=== PATIENT | female | born 1965 | race Caucasian/White ===

== ENCOUNTER 2023-06-30 13:02 | Outpatient (OUT) | payer BC, MEDICARE, SELFPAY ==
[2023-06-30 13:35] LABS: Basophils Absolute Auto 0.1 10^3/uL (0.0-0.1); Basophils Percent Auto 1.4 % (0.2-2.0); Eosinophils Absolute Auto 0.1 10^3/uL (0.0-0.7); Eosinophils Percent Auto 1.7 % (0.9-7.0); Hemoglobin 9.8 g/dL (12.0-16.0); Immature Granulocytes Abs Auto 0.03 10^3/uL (0.00-0.03); Immature Granulocytes Pct Auto 0.6 % (0.0-0.5); Lymphocytes Absolute Auto 1.4 10^3/uL (1.2-3.8); Lymphocytes Percent Auto 28.5 % (20.5-60.0); Mean Corpuscular HGB Conc 29.7 g/dL (29.9-35.2); Mean Corpuscular Hemoglobin 21.8 pg (26.7-34.0); Mean Corpuscular Volume 73.5 fL (81.0-99.0); Mean Platelet Volume 10.2 fL (9.5-13.5); Monocytes Absolute Auto 0.5 10^3/uL (0.3-0.8); Monocytes Percent Auto 9.3 % (1.7-12.0); Neutrophils Absolute Auto 2.8 10^3/uL (1.4-6.5); Neutrophils Percent Auto 58.5 % (43.0-75.0); Platelet Count 223 10^3/uL (150-450); Red Blood Count 4.49 10^6/uL (4.20-5.40); White Blood Count 4.8 10^3/uL (4.0-11.0)
[2023-06-30 13:49] LABS: Estimated Average Glucose 154 mg/dL
[2023-06-30 13:58] LABS: Alanine Aminotransferase 50 U/L (14-59); Albumin Globulin Ratio 1.3; Albumin Level 4.4 g/dL (3.4-5.0); Alkaline Phosphatase 112 U/L (46-116); Anion Gap 13.9; Aspartate Amino Transferase 52 U/L (15-37); Bilirubin Direct 0.1 mg/dL (0.0-0.2); Bilirubin Total 0.3 mg/dL (0.2-1.0); Calcium 9.4 mg/dL (8.5-10.1); Carbon Dioxide 28.1 mmol/L (21.0-32.0); Chloride 100 mmol/L (98-107); Chol HDL Ratio 2.6; Cholesterol 137 mg/dL (<=200); Estimated GFR (African America >60 (>=60); Estimated GFR (Non-African Ame >60 (>=60); Globulin 3.5 g/dL; Glucose 191 mg/dL (74-106); HDL Cholesterol 52 mg/dL (40-60); LDL Cholesterol Calculated 62.6 mg/dL; Sodium 138 mmol/L (136-145); Thyroid Stimulating Hormone 0.916 uIU/mL (0.358-3.740); Total Protein 7.9 g/dL (6.4-8.2); Triglycerides 112 mg/dL (<=150); VLDL CHOLESTEROL 22.4 mg/dL
[2023-06-30 14:20] LABS: Microalbumin Urine Random <1.3 mg/dL (<=30.0)
== END 2023-06-30 13:03 | disposition home or self-care (01) ==
LOC: LAB 13:10
PROVIDERS: PCP Family Medicine; Visit Provider Family Medicine
DX: E11.65 Type 2 diabetes mellitus with hyperglycemia (principal); I10 Essential (primary) hypertension; Z79.899 Other long term (current) drug therapy; E66.01 Morbid (severe) obesity due to excess calories; Z79.4 Long term (current) use of insulin
CPT/HCPCS: 36415; 80048; 80061; 80076; 82043; 83036; 84443; 85025

== ENCOUNTER 2024-04-05 11:28 | Outpatient (OUT) | payer BC, MEDICARE, SELFPAY ==
--- NOTE | 2024-04-05 11:30 | MM_ITS ---
Patient Name: CHASTITY HERNANDES MR#: [id number] : 1965 Exam Date: 04/05/2024 Ordering Doctor: DR Luis Hernandez . RADIOLOGY REPORT PROCEDURE: MM TOMOSYNTHESIS SCREENING BI COMPARISON: MAMMO POST BIOPSY RIGHT, 06/06/2017. MAMMO RT DX, 05/11/2017. MAMMO ADRIANA SCREEN, 03/25/2017. INDICATIONS: screening Calculator Name NCI Breast Cancer Risk Assessment Tool 5 Year Breast Cancer Risk 1.50% Lifetime Breast Cancer Risk 8.30% Personal Breast Cancer No Personal Ovarian Cancer No Treatments None Family Cancers None LOCATION: [facility] BREAST COMPOSITION: The breasts are almost entirely fatty. FINDINGS: DIAGNOSTIC CATEGORY 2--BENIGN FINDING: RIGHT BREAST: No significant suspicious finding. Scattered benign-appearing calcifications are present. No significant change has occurred. LEFT BREAST: No significant suspicious finding. Scattered benign-appearing calcifications are present. RECOMMENDATIONS: ROUTINE MAMMOGRAM AND CLINICAL EVALUATION IN 12 MONTHS. PLEASE NOTE: A NORMAL MAMMOGRAM DOES NOT EXCLUDE THE POSSIBILITY OF BREAST CANCER. A CLINICALLY SUSPICIOUS PALPABLE LUMP SHOULD BE BIOPSIED. Dictated by: Chetan Morales M.D. on 04/06/2024 at 15:10 Approved by: Chetan Morales M.D. on 04/06/2024 at 15:14
[2024-04-05 13:05] LABS: Estimated Average Glucose 157 mg/dL; Glycohemoglobin A1C 7.1 % (4.5-6.2)
== END 2024-04-05 11:29 | disposition home or self-care (01) ==
LOC: MAMMO 11:28
PROVIDERS: PCP Family Medicine; Visit Provider Family Medicine
DX: M25.511 Pain in right shoulder (principal); Z12.31 Encounter for screening mammogram for malignant neoplasm of breast
CPT/HCPCS: 36415; 73030; 77063; 77067; 83036

== ENCOUNTER 2024-04-05 11:56 | Outpatient (OUT) | payer BC, MEDICARE, SELFPAY ==
--- NOTE | 2024-04-05 12:04 | XR_ITS ---
The [address] [address] Patient Name: CHASTITY HERNANDES MRN: [id number] date: 1965 Sex: F Assigned Patient Location: [facility] Current Patient Location: [facility] Accession/Order Number: [id number] Exam Date: 04/05/2024 12:10 Report Date: 04/08/2024 04:54 At the request of: SHAIKH RAMIRO Procedure: XR shoulder RT min 2V PROCEDURE: XR shoulder RT min 2V HISTORY: Acute Pain Right Shoulder M25.511 COMPARISON: None. FINDINGS: BONES:Degenerative osteophyte projecting caudally from distal end of clavicle. Unremarkable humeral head and glenohumeral joint. SOFT TISSUES:No visible soft tissue swelling. EFFUSION:None visible. OTHER: Negative. XR/XR shoulder RT min 2V IMPRESSION: 1. Acromioclavicular joint degenerative osteophyte which would predispose to rotator cuff injury. Electronically authenticated by: ELAN VILLARREAL Date: 04/08/2024 04:54
== END 2024-04-05 11:57 | disposition home or self-care (01) ==
PROVIDERS: PCP Family Medicine; Visit Provider Internal Medicine
DX: M25.511 Pain in right shoulder (principal)
CPT/HCPCS: 73030

== ENCOUNTER 2024-04-26 09:38 | Outpatient (OUT) | payer BC, MEDICARE, SELFPAY ==
--- NOTE | 2024-04-26 09:42 | MR_ITS ---
[place] [id number] Patient Name: CHASTITY HERNANDES MRN: [id number] date: 1965 Sex: F Assigned Patient Location: MRI Current Patient Location: MRI Accession/Order Number: [id number] Exam Date: 04/26/2024 09:50 Report Date: 04/26/2024 14:42 At the request of: SHAIKH RAMIRO Procedure: MR shoulder RT wo con EXAMINATION: MR shoulder RT wo con HISTORY: Acute Pain Of Right Shoulder M25.511 COMPARISON: No relevant comparison available. TECHNIQUE: A variety of imaging planes and parameters were utilized for visualization of suspected pathology. Imaging was performed without contrast. FINDINGS: ROTATOR CUFF REGION CUFF TENDONS: Moderately increased signal intensity in the supraspinatus and subscapularis tendons indicates tendon degeneration and/or tendinitis. No herman tear is seen. CUFF MUSCLES: Normal appearing muscles. DELTOID: Normal. No significant atrophy or tear. LONG BICEPS TENDON: Normal. No abnormal signal, attrition, or tear. LABRUM/BICEPS ANCHOR SUPERIOR: Normal. No visible labral tear or biceps anchor pathology. ANTERIOR/INFERIOR: Normal anterior labral tear POSTERIOR: Normal. No posterior labrum abnormality. CAPSULE Normal. No visible capsular laxity or thickening. AC JOINT REGION AC JOINT: Moderate osteoarthropathy with mild-moderate narrowing of the underlying coracoacromial arch. AC LIGAMENTS: Normal acromioclavicular ligament. CC LIGAMENTS: Normal coracoclavicular ligaments. ACROMION: Normal horizontal (Type I) configuration. SUBACROMIAL BURSA: Normal. No significant effusion. HYALINE CARTILAGE: Mild diffuse thinning OTHER BONES: Moderate subcortical bone marrow signal changes in the superior aspect of the humerus may be caused by subacromial impingement. OTHER OBSERVATIONS: Negative. No other significant findings or glenohumeral effusion. 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
--- OUTSIDE RECORDS SUMMARY | 2024-04-26 09:58 | XMS_ITS | CCD ---
Author Organization [facility] Care Team Providers Care Supervisor Grips Name Role Phone ELIZABETH JOHNSON Unavailable Unavailable SARY CARRENO Unavailable Unavailable ELTAHAWY, JOHNNY Cameron Attending Unavailable ELTAHAWY, JOHNNY Cameron Admitting Unavailable NADLUIS MACKENZIE Referring Unavailable ALISA, LUIS Primary Care Unavailable PARVINEREJeff, DR LUIS Cameron Attending Unavailable NADERER, DR LUIS Cameron Consulting Unavailable NADERER, DR LUIS Cameron Primary Care Unavailable NADERER, DR LUIS Cameron Admitting Unavailable NADERER, DR LUIS Cameron Attending Unavailable NADERER, DR LUIS Cameron Consulting Unavailable NADEREJeff, DR LUIS Cameron Primary Care Unavailable NADERER, DR LUIS Cameron Admitting Unavailable NADERER, DR LUIS Cameron Consulting Unavailable NADERER, DR LUIS Cameron Primary Care Unavailable NADERER, DR LUIS Cameron Admitting Unavailable NADERER, DR LUIS Cameron Attending Unavailable Luis Cuellar MD Primary Care Provider LUIS CUELLAR Primary Care Unavailable ALISA, LUIS Attending Unavailable SHAIKH RUBIO Attending Unavailable Allergies Allergy Classification Reported Allergen(s) Allergy Type Date of Onset Reaction(s) Facility (2 sources) gabapentin; Translations: [facility]IN[facility]; Translations: [[facility]PROXEN] [facility] Penicillin V Potassium; Translations: [PENICILLIN V POTASSIUM] Propensity to adverse reactions to drug (disorder) 5 [facility] Repository (1 source) terbinafine; Translations: [TERBINAFINE HCL] Drug Allergy 5 [facility] Repository (1 source) DULoxetine; Translations: [CYMBALTA] Drug Allergy 6 [facility] Repository (2 sources) gabapentin Drug Allergy 4 [facility] Repository (1 source) lamoTRIgine Drug Allergy 4 [facility] Repository (2 sources) Penicillins; Translations: [PENICILLINS] Drug allergy (disorder) 4 [facility] Repository (1 source) cyclobenzaprine Drug Allergy 7 [facility] Repository (1 source) Penicillin Drug Allergy 7 [facility] Repository (1 source) NSAIDs; Translations: [NSAIDS (NON-STEROIDAL ANTI-INFLAMMATORY DRUG)] Propensity to adverse reactions to drug (disorder) 7 [facility] Repository Medications Current Medications Medication Drug Class(es) Dates Sig (Normalized) Sig (Original) furosemide 40 mg oral tablet (1 source) Loop Diuretic Start: 12-06-2023 take 1 tablet by mouth once daily as needed furosemide (Lasix) 40 MG tablet Indications: Edema of both legs TAKE 1 TABLET BY MOUTH EVERY DAY NEEDED 90 tablet 3 12/06/2023 Active glipiZIDE 10 mg oral tablet (1 source) Sulfonylurea Start: 11-17-2023 glipiZIDE (Glucotrol) 10 MG tablet Indications: Type 2 diabetes mellitus without complications (CMS/HCC) TAKE 2 TABLETS EVERY MORNING AND 1 TABLET EVERY EVENING 270 tablet 3 11/17/2023 Active mirtazapine 45 mg oral tablet (1 source) Start: 11-18-2023 take 1 tablet by mouth once daily at bedtime mirtazapine (Remeron) 45 MG tablet Indications: Episode of recurrent major depressive disorder, unspecified depression episode severity (CMS/HCC) TAKE 1 TABLET BY MOUTH EVERYDAY AT BEDTIME 90 tablet 3 11/18/2023 Active omeprazole 40 mg delayed release oral capsule (1 source) Proton Pump Inhibitor Start: 01-05-2024 take 1 capsule by mouth twice daily omeprazole (PriLOSEC) [address] capsule Indications: Gastro-esophageal reflux disease without esophagitis , Esophageal reflux TAKE 1 CAPSULE BY MOUTH TWICE A DAY 180 capsule 3 01/05/2024 Active pregabalin 300 mg oral capsule (2 sources) Start: 01-05-2024 End: 02-04-2024 take 1 capsule by mouth in the morning pregabalin (Lyrica) 300 MG capsule Indications: Type 2 diabetes mellitus with polyneuropathy (CMS/HCC) Take 1 capsule (300 mg) by mouth in the morning and 1 capsule (300 mg) before bedtime. 60 capsule 2 01/05/2024 02/04/2024 Active zolpidem tartrate 10 mg oral tablet (1 source) gamma-Aminobutyric Acid-ergic Agonist Start: 12-19-2023 take 1 tablet by mouth once daily at bedtime zolpidem (Ambien) 10 MG tablet Indications: Insomnia, unspecified , Persistent insomnia TAKE 1 TABLET BY MOUTH EVERYDAY AT BEDTIME 90 tablet 2 12/19/2023 Active Problems Active Problems Problem Classification Problem Date Documented Date Episodic/Chronic Diabetes mellitus with complications (5 sources) Type 2 diabetes mellitus with hyperglycemia; Translations: [Type 2 diabetes mellitus] Onset: 12-28-2022 Chronic Esophageal disorders (2 sources) Gastroesophageal reflux disease without esophagitis; Translations: [Gastro-esophageal reflux disease without esophagitis] 01-05-2024 Chronic Essential hypertension (1 source) Essential (primary) hypertension; Translations: [ESSENTIAL PRIMARY HYPERTENSION] Onset: 06-10-2022 Chronic Other aftercare (1 source) care home (current) use of insulin; Translations: [JAIL CURRENT USE OF INSULIN] Onset: 12-29-2022 Episodic Other nutritional; endocrine; and metabolic disorders (1 source) Morbid (severe) obesity due to excess calories; Translations: [MORBID SEVERE OBES D/T EXCESS RJ] Onset: 06-10-2022 Chronic Superficial injury; contusion (1 source) Injury of conjunctiva and corneal abrasion without foreign body, left eye, initial encounter; Translations: [Injury of conjunctiva and corneal abrasion without foreign body, left eye, initial encounter] Onset: 01-06-2024 Episodic Unclassified (1 source) Foreign Body in Eye Onset: 01-06-2024 Unclassified (1 source) sawdust in left eye Onset: 01-06-2024 Past or Other Problems Problem Classification Problem Date Documented Da te Episodic/Chronic Other aftercare (1 source) Other intermediate project manager (current) drug therapy; Translations: [OTH MULTILITH OPERATOR CURRENT DRUG THERAPY] Onset: 06-10-2022 Episodic Results Test Name Value Interpretation Reference Range Facility GLYCOHEMOGLOBIN A1Con 2022 ADA RECOMMENDATION SEE BELOW Normal [facility] Comment on above: Result Comment: ADA RECOMMENDED LIMIT 4.0 - 6.0 ADA THERAPEUTIC TARGET < 7.0 ACTION SUGGESTED > 7.0 Performed By: #### A 1C #### [facility] [address] [place] [address] Dr. Anali Underwood Glucose [Mass/Vol] 183 mg/dL Normal [facility] Comment on above: Performed By: #### A 1C #### [facility] [address] [place] [address] Dr. Anali Underwood HbA1c (Bld) [Mass fraction] 8.0 % Critically high 4.5-6.2 [facility] Comment on above: Performed By: #### A 1C #### [facility] [address] [place] [address] Dr. Anali Underwood GLYCOHEMOGLOBIN A1Con 2021 ADA RECOMMENDATION SEE BELOW Normal [facility] Comment on above: Result Comment: ADA RECOMMENDED LIMIT 4.0 - 6.0 ADA THERAPEUTIC TARGET < 7.0 ACTION SUGGESTED > 7.0 Performed By: #### A 1C #### [facility] [address] [place] [address] Dr. Anali Underwood Glucose [Mass/Vol] 174 mg/dL Normal [facility] Comment on above: Performed By: #### A 1C #### [facility] [address] [place] [address] Dr. Anali Underwood HbA1c (Bld) [Mass fraction] 7.7 % Critically high 4.5-6.2 [facility] Comment on above: Performed By: #### A 1C #### [facility] [address] [place] [address] Dr. Anali Underwood CBC AUTO DIFFon 06-08-2022 BASO # 0.1 103/ul Normal 0.0-0.1 [facility] Comment on above: Performed By: #### C BC #### [facility] [address] [place] [address] Dr. Anali Underwood Basophils/100 WBC (Bld) 1.0 % Normal 0.2-2.0 [facility] Comment on above: Performed By: #### C BC #### [facility] [address] [place] [address] Dr. Anali Underwood EO # 0.1 103/ul Normal 0.0-0.7 [facility] Comment on above: Performed By: #### C BC #### [facility] [address] [place] [address] Dr. Anali Underwood Eosinophils/100 WBC (Bld) 1.1 % Normal 0.9-7.0 [facility] Comment on above: Performed By: #### C BC #### [facility] [address] [place] [address] Dr. Anali Underwood Erythrocyte distribution width (RBC) [Ratio] 19.8 % Critically high 11.0-15.0 [facility] Comment on above: Performed By: #### C BC #### [facility] [address] [place] [address] Dr. Anali Underwood Hematocrit (Bld) [Volume fraction] 36.4 % Normal 36.0-48.0 [facility] Comment on above: Performed By: #### C BC #### [facility] [address] [place] [address] Dr. Anali Underwood Hemoglobin (Bld) [Mass/Vol] 10.7 g/dL Critically low 12.0-16.0 [facility] Comment on above: Performed By: #### C BC #### [facility] [address] [place] [address] Dr. Anali Underwood IG # 0.02 10e3/ul Normal 0.00-0.03 [facility] Comment on above: Performed By: #### C BC #### [facility] [address] [place] [address] Dr. Anali Underwood IG % 0.3 % Normal 0.0-0.5 [facility] Comment on above: Performed By: #### C BC #### [facility] [address] [place] [address] Dr. Anali Underwood LYMPH # 2.3 103/ul Normal 1.2-3.8 [facility] Comment on above: Performed By: #### C BC #### [facility] [address] [place] [address] Dr. Anali Underwood Lymphocytes/100 WBC (Bld) 31.7 % Normal 20.5-60.0 [facility] Comment on above: Performed By: #### C BC #### [facility] [address] [place] [address] Dr. Anali Underwood MANUAL DIFF REQ NO Normal [facility] Comment on above: Performed By: #### C BC #### [facility] [address] [place] [address] Dr. Anali Underwood MCH (RBC) [Entitic mass] 22.7 pg Critically low 26.7-34.0 [facility] Comment on above: Performed By: #### C BC #### [facility] [address] [place] [address] Dr. Anali Underwood MCHC (RBC) [Mass/Vol] 29.4 g/dL Critically low 29.9-35.2 [facility] Comment on above: Performed By: #### C BC #### [facility] [address] [place] [address] Dr. Anali Underwood MCV (RBC) [Entitic vol] 77.3 fL Critically low 81.0-99.0 [facility] Comment on above: Performed By: #### C BC #### [facility] [address] [place] [address] Dr. Anali Underwood MONO # 0.6 103/ul Normal 0.3-0.8 [facility] Comment on above: Performed By: #### C BC #### [facility] [address] [place] [address] Dr. Anali Underwood Monocytes/100 WBC (Bld) 8.1 % Normal 1.7-12.0 [facility] Comment on above: Performed By: #### C BC #### [facility] [address] [place] [address] Dr. Anali Underwood NEUT # 4.1 103/ul Normal 1.4-6.5 [facility] Comment on above: Performed By: #### C BC #### [facility] [address] [place] [address] Dr. Anali Underwood Neutrophils/100 WBC (Bld) 57.8 % Normal 43.0-75.0 [facility] Comment on above: Performed By: #### C BC #### [facility] [address] [place] [address] Dr. Anali Underwood Platelet mean volume (Bld) [Entitic vol] 11.6 fL Normal 9.5-13.5 [facility] Comment on above: Performed By: #### C BC #### [facility] [address] [place] [address] Dr. Anali Underwood PLT 248 103/ul Normal 150-450 [facility] Comment on above: Performed By: #### C BC #### [facility] [address] [place] [address] Dr. Anali Underwood RBC 4.71 106/ul Normal 4.20-5.40 [facility] Comment on above: Performed By: #### C BC #### [facility] [address] [place] [address] Dr. Anali Underwood WBC 7.2 103/ul Normal 4.0-11.0 [facility] Comment on above: Performed By: #### C BC #### [facility] [address] [place] [address] Dr. Anali Underwood GLYCOHEMOGLOBIN A1Con 2021 ADA RECOMMENDATION SEE BELOW Normal [facility] Comment on above: Result Comment: ADA RECOMMENDED LIMIT 4.0 - 6.0 ADA THERAPEUTIC TARGET < 7.0 ACTION SUGGESTED > 7.0 Performed By: #### A 1C #### [facility] [address] [place] [address] Dr. Anali Underwood Glucose [Mass/Vol] 171 mg/dL Normal [facility] Comment on above: Performed By: #### A 1C #### [facility] [address] [place] [address] Dr. Anali Underwood HbA1c (Bld) [Mass fraction] 7.6 % Critically high 4.5-6.2 [facility] Comment on above: Performed By: #### A 1C #### [facility] [address] [address] [address] Anali Underwood LIPID PROFILEon 06-08-2022 CHOL-HDL RATIO NORM SEE BELOW Normal [facility] Comment on above: Result Comment: 3.3 - 4.4 LOW RISK 4.4 - 7.1 AVERAGE RISK 7.1 - 11.0 MODERATE RISK >11.0 HIGH RISK Performed By: #### L IPID, LIVER, BMP, TSH #### [facility] [address] [address] [address] Anali Underwood Cholesterol [Mass/Vol] 148 mg/dL Normal <=200 [facility] Comment on above: Performed By: #### L IPID, LIVER, BMP, TSH #### [facility] [address] [address] [address] Anali Underwood Cholesterol in HDL [Mass/Vol] 58 mg/dL Normal 40-60 [facility] Comment on above: Performed By: #### L IPID, LIVER, BMP, TSH #### [facility] [address] [address] [address] Anali Underwood Cholesterol in LDL [Mass/Vol] 66.4 mg/dL Normal [facility] Comment on above: Performed By: #### L IPID, LIVER, BMP, TSH #### [facility] [address] [address] [address] Anali Underwood Cholesterol.total/ Cholesterol in HDL [Mass ratio] 2.6 {ratio} Normal [facility] Comment on above: Performed By: #### L IPID, LIVER, BMP, TSH #### [facility] [address] [address] [address] Anali Underwood HDL NORMAL > or = 60 mg/dl - LO W CARDIOVASCULAR RISK <40 mg/dl - HIGH CARDIOVASCULAR RISK Normal [facility] Comment on above: Performed By: #### L IPID, LIVER, BMP, TSH #### [facility] [address] [place] [address] Dr. Anali Underwood LDL CALC NORMAL SEE BELOW Normal [facility] Comment on above: Result Comment: <100 mg/dl OPTIMAL 100 - 129 mg/dl NEAR OR ABOVE OPTIMAL 130 - 159 mg/dl BORDERLINE HIGH 160 - 189 mg/dl HIGH >190 mg/dl VERY HIGH Performed By: #### L IPID, LIVER, BMP, TSH #### [facility] [address] [place] [address] Dr. Anali Underwood Triglyceride [Mass/Vol] 118 mg/dL Normal <=150 [facility] Comment on above: Performed By: #### L IPID, LIVER, BMP, TSH #### [facility] [address] [address] [address] Anali Underwood VLDL CALC 23.6 mg/dL Normal [facility] Comment on above: Performed By: #### L IPID, LIVER, BMP, TSH #### [facility] [address] [place] [address] Dr. Anali Underwood LIVER PROFILEon 06-08-2022 Albumin [Mass/Vol] 4.2 g/dL Normal 3.4-5.0 [facility] Comment on above: Performed By: #### L IPID, LIVER, BMP, TSH #### [facility] [address] [address] [address] Anali Underwood Albumin/Globulin [Mass ratio] 1.0 {ratio} Normal [facility] Comment on above: Performed By: #### L IPID, LIVER, BMP, TSH #### [facility] [address] [place] [address] Dr. Anali Underwood ALP [Catalytic activity/Vol] 93 U/L Normal 46-116 [facility] Comment on above: Performed By: #### L IPID, LIVER, BMP, TSH #### [facility] [address] [place] [address] Dr. Anali Underwood ALT [Catalytic activity/Vol] 59 U/L Normal 14-59 [facility] Comment on above: Performed By: #### L IPID, LIVER, BMP, TSH #### [facility] [address] [place] [address] Dr. Anali Underwood AST [Catalytic activity/Vol] 99 U/L Critically high 15-37 [facility] Comment on above: Performed By: #### L IPID, LIVER, BMP, TSH #### [facility] [address] [place] [address] Dr. Anali Underwood BILI, CONJUGATED 0.0 mg/dL Normal 0.0-0.2 [facility] Comment on above: Performed By: #### L IPID, LIVER, BMP, TSH #### [facility] [address] [place] [address] Dr. Anali Underwood Bilirubin [Mass/Vol] 0.4 mg/dL Normal 0.2-1.0 [facility] Comment on above: Performed By: #### L IPID, LIVER, BMP, TSH #### [facility] [address] [place] [address] Dr. Anali Underwood Globulin (S) [Mass/Vol] 4.2 g/dL Normal [facility] Comment on above: Performed By: #### L IPID, LIVER, BMP, TSH #### [facility] [address] [place] [address] Dr. Anali Underwood Protein [Mass/Vol] 8.4 g/dL Critically high 6.4-8.2 [facility] Comment on above: Performed By: #### L IPID, LIVER, BMP, TSH #### [facility] [address] [place] [address] Dr. Anali Underwood MICROALBUMIN, RAND URon 07- mALB 0.9 mg/L Normal <=30.0 [facility] Comment on above: Performed By: #### M ALBR #### [facility] [address] [place] [address] Dr. Anali Underwood PROF CHEM 8 (BAS METB)on Anion gap [Moles/Vol] 15.2 mmol/L Normal [facility] Comment on above: Performed By: #### L IPID, LIVER, BMP, TSH #### [facility] [address] [place] [address] Dr. Anali Underwood Calcium [Mass/Vol] 9.6 mg/dL Normal 8.5-10.1 [facility] Comment on above: Performed By: #### L IPID, LIVER, BMP, TSH #### [facility] [address] [address] [address] Anali Underwood Chloride [Moles/Vol] 101 mmol/L Normal 98-107 [facility] Comment on above: Performed By: #### L IPID, LIVER, BMP, TSH #### [facility] [address] [address] [address] Anali Underwood CO2 [Moles/Vol] 29.9 mmol/L Normal 21.0-32.0 [facility] Comment on above: Performed By: #### L IPID, LIVER, BMP, TSH #### [facility] [address] [place] [address] Dr. Anali Underwood Creatinine [Mass/Vol] 0.67 mg/dL Normal 0.55-1.02 [facility] Comment on above: Performed By: #### L IPID, LIVER, BMP, TSH #### [facility] [address] [place] [address] Dr. Anali Underwood EGFR-AF GERMAN >60 Normal >=60 [facility] Comment on above: Performed By: #### L IPID, LIVER, BMP, TSH #### [facility] [address] [place] [address] Dr. Anali Underwood EGFR-NON AF GERMAN >60 Normal >=60 [facility] Comment on above: Performed By: #### L IPID, LIVER, BMP, TSH #### [facility] [address] [place] [address] Dr. Anali Underwood Glucose [Mass/Vol] 69 mg/dL Critically low 74-106 [facility] Comment on above: Performed By: #### L IPID, LIVER, BMP, TSH #### [facility] [address] [place] [address] Dr. Anali Underwood Potassium [Moles/Vol] 5.1 mmol/L Normal 3.5-5.1 [facility] Comment on above: Performed By: #### L IPID, LIVER, BMP, TSH #### [facility] [address] [address] [address] Anali Underwood Sodium [Moles/Vol] 141 mmol/L Normal 136-145 [facility] Comment on above: Performed By: #### L IPID, LIVER, BMP, TSH #### [facility] [address] [address] [address] Anali Underwood Urea nitrogen [Mass/Vol] 14.0 mg/dL Normal 7.0-18.0 [facility] Comment on above: Performed By: #### L IPID, LIVER, BMP, TSH #### [facility] [address] [address] [address] Anali Underwood Urea nitrogen/Creatinin e [Mass ratio] 20.9 mg/mg Normal [facility] Comment on above: Performed By: #### L IPID, LIVER, BMP, TSH #### [facility] [address] [address] [address] Anali Underwood TSHon 06-08-2022 TSH 1.511 uIU/mL Normal 0.358-3.740 [facility] Comment on above: Performed By: #### L IPID, LIVER, BMP, TSH #### [facility] [address] [address] [address] Anali Underwood CNOVon 08-15-2017 CNOV Office Visit (PAINLN) ----LUDMILA HERNANDES ([id number]) 1965 [facility]/15/17 1:30 PM ELIZABETH JOHNSON During your visit today, we recorded the following information about you: Blood pressure Weight Height 122/78 103 kg 1.575 Beth Johnson DO 08/24/2017 5:07 PM [facility] Initial EvaluationSeptember 2016 - 1:37 PMThis appointment was requested by Sary Carreno (MANDY), for my medical opinionregarding? the evaluation and management of the patient's Ludmila Hernandesproblems, and my final recommendations will be communicated to the requestinghealth care provider by way of the shared medical record for internal providersor letter via the [employer] for external providers.SUBJECTIVE:Ludmila Hernandes a 52 year [facility], accompanied by self only, was referred by Sary Carreno (MANDY),for an initial evaluation for low back.The pain is located in the low back and radiates to bilateral lower extremities along lateral aspect to the level of toesDistribution: back pain greater than leg pain.Started 10 years ago, was not directly related to injury/trauma, and symptomshave been persistent.Characterized as aching and sharpCurrently the pain is a rated at a 8 on a scale of 0-10.Worst pain score is rated at 10 on a scale of 0-10.Best pain score is rated at 5 on a scale of 0-10.Aggravated by standing, forward flexion, lifting, getting up from sitting andwalking.Mitigated by medications(percocet).Curren t treatments and response:PercocetInjections SI jointInjectionsPTResponse to previous treatments:Injections didn't help the SI injections did help some PT didn't help eitherthe only thing that helps with some of the pain was the percocet.Alcohol Abuse - NoDrug Abuse - NoCurrent Anticoagulant Therapy: NoSleep Disturbance: Yes: Difficulty falling asleep. and Difficulty stayingasleep.PAST MEDICAL HISTORYDiagnosis Date- Anxiety- Arthritis- Depression- Fibromyalgia- HypertensionPAST SURGICAL HISTORYProcedure Laterality Date- SECTION HX x4- HYSTERECTOMY HX- OTHER x3 rt knee surgeries- OTHER x5 rt ankle surgeries- OTHER breast reductionSocial History Marital status: Spouse name: Years of education: Number of children:Social History Main Topics Smoking status: Never Smoker Alcohol use: No Drug use: NoFAMILY HISTORYProblem Relation Age of Onset- Emphysema Mother . Was a smoker- Colon Cancer Father - Emphysema Brother . Was a smokerALLERGIESAllergen Reactions- Lamisil [Terbinafin* GI Upset- Naproxen GI Upset- Neurontin [Gabapent* Itching- Penicillin V Potass* HivesCurrent Outpatient Prescriptions:ALPRAZolam (XANAX) 1 mg tablet Take 1 mg by mouth three times daily.lamoTRIgine (LAMICTAL) 100 mg tablet Take 100 mg by mouth one time only.atenolol (TENORMIN) 25 mg tablet Take 25 mg by mouth once daily.nabumetone (RELAFEN) 500 mg tablet Take 500 mg by mouth twice daily.venlafaxine XR (EFFEXOR XR) 150 mg 24 hr capsule Take 150 mg by mouth oncedaily.venlafaxine ER (EFFEXOR XR) 75 mg 24 hr capsule Take 75 mg by mouth once daily.AMITRIPTYLINE HCL (ELAVIL ORAL) Take 150 mg by mouth daily at bedtime.atenolol (TENORMIN) 25 mg tablet Take 25 mg by mouth once daily.pregabalin (LYRICA) 300 mg capsule Take 300 mg by mouth twice daily.fluticasone (FLONASE) 50 mcg/actuation nasal spray Use 1 [place] in each nostrilonce daily.No current facility-administered medications for this visit.Review of Symptoms:GENERAL:No weight loss, malaise or fevers., SEE HPIHEENT:Negative for frequent or significant headaches, No changes in hearing orvision, no nose bleeds or other nasal problemsNECK:Positive for lumps, goiter, pain and significant neck swellingRESPIRATORY: Positive for cough, wheezing or shortness of breath.CARDIOVASCULAR: Negative for chest pain, leg swelling and palpitationsGASTROINTESTINAL : Negative for abdominal discomfort, blood in stools or blackstools or change in bowel habitsGENITOURINARY: No history of dysuria, frequency or incontinenceGYN: Negative for abnormal vaginal bleeding, abnormal vaginal dischargeMUSCULOSKELETAL:Pos itive for joint pain or swelling, back pain or muscle pain.NEUROLOGIC:Positive for focal numbness or weakness, headaches and dizziness orsyncope.SKIN:Negative for lesions, rash, and itching.PSYCHIATRIC: Positive for sleep disturbance, mood disorder and recentpsychosocial stressors.HEMATOLOGIC/LYMPHA TIC/IMMUNOLOGIC:Negative for prolonged bleeding, bruisingeasily or swollen nodes.ENDOCRINE: Negative for cold or heat intolerance, polyuria, polydipsia andgoiter.The remainder of the ROS was negative.PREVIOUS TREATMENTS LASTING SIX WEEKS IN THE LAST SIX MONTHSActive conservative therapy lasting 6 weeks in the last six months (see below) 1. Physical therapy: Yes: Where: [facility] , Date Started: 04/2017, DateEnded: 06/2017. 2. Home exercise program after PT: No 3. Occupational therapy: No 4. A physician supervised home exercise program (HEP): No 5. Hat Finishing Materials Preparer: NoPassive conservative therapy lasting 6 weeks in the last six months (see below) 1. Medical devises: No 2. Acupuncture: No 3. Tens unit: No 4. Prescription pain medication: Yes 5. NSAIDS: NoDo you feel safe at home? YesRisk assessment at risk due to fall:Barry Rodriguez [facility]2016 Time: 1:48 PMThe subjective information, including chief complaint, past medical history andreview of systems, was explored in detail with the patient and edited as neededand is complete.Elizabeth Johnson, [facility]2016Physical Examination:BP 122/78 Ht 5' 2ANDquot; (1.58m) Wt 227 lb (103.0kg) BMI 41.51 kg/(m2).General:Obese, well appearing, alert, in no acute distressSkin: skin color, texture, turgor normal, no rashes or lesionsHEENT: normocephalic, atraumatic, sclera non-ictericCardiovascular: Regular rate and rhythm, Radial pulses intact and equalLungs: Respirations even and non-labored.GI: Soft, non-tender, non-distended. Multiple scars with primarily centralsurgical scar.: not examinedMusculoskeletal: Neck: Supple; good ROM. Back: tenderness over entire back and over the bilateral SIJ, leftANDgt;right. Extremities: all joints NormalNeurological: Mental Status: alert and oriented x 3 Cranial Nerves: Not examined Reflexes: Patellar reflexes are 2+., Biceps reflexes are 2+. Motor Strength: Motor strength and tone are 5/5 all throughout. Sensory: Sensation was intact to light touch all throughout. Gait: Normal.Recent MRI:MRI Spine 10/13/2016There are four nonrib-bearing lumbar vertebral bodies. For namingpurposes, the last normal-appearing lumbar vertebral body will be called L5.Vertebral height, marrow signal and alignment appears unremarkable.Mild disc desiccation identified at L2/L3 and L3/L4. There is no evidence ofcompression fracture, spinal or paraspinal masses. The distal aspect of thecord is not studied in detail, but no distal cord expansion is appreciated. Noevidence of compression fracture or sacral insufficiency fracture.L5/S1: A broad-based disc bulge as well as ligamentous hypertrophy and facetarthropathy result in mild triangulation of the sac. Right side facet effusionis noted. There is no evidence of central canal stenosis. Moderate right neuralforaminal narrowing and moderate left neural foraminal narrowing are seen. Thislevel is stable.L4/L5: A broad-based disc bulge is noted. There are bilateral facet effusionsas well as ligamentum flavum hypertrophy and facet arthropathy. There is noevidence of central canal stenosis although there is triangulation of the sac.The central canal measures 1.2 cm. There is mild right neural foraminalnarrowing and mild to moderate left neural foraminal narrowing which appearsstable.L3/L4: A circumferential disc bulge is noted. There is no evidence of centralcanal stenosis. There is ligamentum flavum hypertrophy and facet arthropathywith bilateral facet effusions. The central canal measures 1 cm. There ismoderate to severe right neural foraminal narrowing. The left neural foramendemonstrates mild to moderate foraminal narrowing secondary to disc materialabutting the exiting L3 nerve root. This level is unchanged.L2/L3: No evidence of central canal stenosis. There is minimal bilateral neuralforaminal narrowing. No significant change.L1/L2: No central canal stenosis or significant neural foraminal narrowing.The more superior levels demonstrate mild disc bulges, but no central canalstenosis or significant neural foraminal narrowing. No abdominal soft tissueabnormalities are appreciated.IMPRESSION:1. Please note there are four nonrib-bearing lumbar vertebral bodies. Inkeeping with the prior numbering system, the last lumbar vertebral body will becalled L5.2. No significant change from the 03/14/2014 study. Please see level by leveldictation above.OARRS website checked and validated. Oarrs demonstrates evidence ofmulti-sourcing on 3 occassions- August 15, 2017 by Elizabeth Johnson [facility]; ASSESSMENT: Paula Christianson, MSN, SALES AND BUSINESS DEVELOPMENT MANAGER was present during the interviewand physical exam.Ludmila Hernandes is a 52 year old female with chronic low back pain withradiation to the B/L LE to the lateral leg to the level of the toes x 10 years(LBPANDgt;LE pain).The pain is described as aching and sharp, rating her pain today as 8/10 with arange of 5-10/10 on her best and worst days respectively. Pain is increased bystanding, forward flexion, lifting, getting up from sitting and walking.Mitigated by medications (Relafen, Percocet, Effexor 75 mg QD, Wxnnecbasqhgd049 mg QD, Lamictal 100 mg QD, Lyrica 300 BID, and Xanax 1 mg TID PRN). FailedTENs. PT a year ago. Reports that Percocet is the only medication that hasprovided some relief. Hx of SIJ injection that helped and back injections(epidurals that did not help), PT (-06/2017) that did not help.Reports seeing a pain management physician (Dr. Pugh) as she was informedthat there was nothing more than could be done for her.Pertinent medical history of Bipolar Disorder. Reports history ofintestinal/hernia surgery 2015.Reports that she failed a urine toxicology test - showing no evidence of thePercocet in her urine. OARRs shows evidence of multi-sourcing.Denies a personal history of drug, alcohol abuse.Physical exam shows tenderness over entire back and over the bilateral SIJ,leftANDgt;right.Imaging shows mild disc desiccation identified at L2/L3 and L3/L4. At L4-L5and L5/S1: broad-based disc bulges as well as ligamentous hypertrophy andfacet arthropathy with mild/moderate impact on the central canal.Offered SIJ injections; patient declined. Recommend CPRP. Patient was advisedthat narcotic medications are not recommended.(M46.1) Sacroiliitis (HCC) (primary encounter diagnosis)(M47.817) Lumbosacral spondylosis without myelopathy(F31.9) Bipolar affective disorder, current episode manic, current episodeseverity unspecified (HCC)(F11.90) Chronic, continuous use of opioidsPLAN:1) Offered SIJ injections; patient declined2) Recommend CPRP3) Patient was informed narcotic medications are not recommended.4) RTC PRNThe above plan and management options were discussed at length with patient.Patient is in agreement with the above and verbalized understanding.Thank you Sary Carreno ([facility]) for allowing me to participate in Ludmila Larson's care.Paula Christianson, [employer]ONE-CSept2016Referring Provider: SARY CARRENO [[id number]]Allergies As of Date: 08/15/2017 Noted Allergy ReactionLAMISIL (TERBINAFINE HCL) 02/06/2015 8 - GI UpsetNAPROXEN 02/06/2015 8 - GI UpsetNEURONTIN (GABAPENTIN) 02/06/2015 9 - ItchingPENICILLIN V POTASSIUM 02/06/2015 4 - HivesDate Reviewed: 08/15/2017Reviewed by: Paula Quesada ([facility]) Sammy - Fully AssessedReason for Visit: Consult [502] Cmt: new patientPrimary Visit Diagnosis:Sacroiliitis (HCC) [M46.1] Other Visit Diagnoses:Lumbosacral spondylosis without myelopathy [M47.817] Bipolar affective disorder, current episode manic, current episode severity unspecified (HCC) [F31.9] Chronic, continuous use of opioids [F11.90]Order(s):CONSULT TO CHRONIC PAIN REHABILITATION (NON-PAIN ANESTHESIA) [[id number]] Order #: [id number]: 1Prescriptions as of 08/15/2017 Sig: ALPRAZOLAM 1 MG TABLET Take 1 mg by mouth three time* LAMOTRIGINE 100 MG TABLET Take 100 mg by mouth one time* ATENOLOL 25 MG TABLET Take 25 mg by mouth once marco* NABUMETONE 500 MG TABLET Take 500 mg by mouth twice da* VENLAFAXINE ER 150 MG CAPSULE* Take 150 mg by mouth once timo* VENLAFAXINE ER 75 MG CAPSULE,* Take 75 mg by mouth once marco* ELAVIL ORAL Take 150 mg by mouth daily at* ATENOLOL 25 MG TABLET Take 25 mg by mouth once marco* PREGABALIN 300 MG CAPSULE Take 300 mg by mouth twice da* FLUTICASONE 50 MCG/ACTUATION * Use 1 [place] in each nostril o*Problem List As Of Date: 08/15/2017(None)Medications Discontinued During This Encounter omeprazole (PRILOSEC) 20 mg capsule 08/15/2017 Class: Historical Med Route: ORAL Sig: Take 20 mg by mouth once daily. Disc: Reason for discontinue is not on file. hydrOXYzine HCl (ATARAX) 25 mg tablet 08/15/2017 Class: Historical Med Route: ORAL Sig: Take 25 mg by mouth twice daily as needed. Disc: Reason for discontinue is not on file. citalopram (CELEXA) 20 mg tablet 08/15/2017 Class: Historical Med Route: ORAL Sig: Take 20 mg by mouth once daily. Disc: Reason for discontinue is not on file. Cetirizine 10 mg cap 08/15/2017 Class: Historical Med Route: ORAL Sig: Take 10 mg by mouth once daily. Disc: Reason for discontinue is not on file. tiZANidine HCl 4 mg capsule 08/15/2017 Class: Historical Med Route: ORAL Sig: Take 4 mg by mouth. 1/2 tab in am1/2 tab at noon2 tabs at bedtime Disc: Reason for discontinue is not on file. oxyCODONE-acetaminophen (PERCOCET) 7* 08/15/2017 Class: Historical Med Route: ORAL Sig: Take 1 tablet by mouth twice daily as needed. Disc: Reason for discontinue is not on file. meloxicam (MOBIC) 15 mg tablet 08/15/2017 Class: Historical Med Route: ORAL Sig: Take 15 mg by mouth once daily. Disc: Reason for discontinue is not on file. lidocaine (LIDODERM) 5 %(700 mg/patc* 08/15/2017 Class: Historical Med Route: TRANSDERMAL Sig: Apply 1 Patch as directed every 12 hours. Disc: Reason for discontinue is not on file.Follow-up and Disposition History RecordedEncounter Number: [id number] Status:Closed by ELIZABETH JOHNSON DO on 08/24/17 [facility] PROGRESSon 08-15-2017 PROGRESS HNO ID: [id number] thor: Elizabeth WhitesService: (none)Author Type: PhysicianType: Progress NotesFiled: 08/24/2017 5:07 PMNote Text:[facility] Initial EvaluationS2016 - 1:37 PMThis appointment was requested by Sary Carreno (MANDY), for my medicalopinion regarding? the evaluation and management of the patient's Ludmila Larson problems, and my final recommendations will be communicated tothe requesting health care provider by way of the shared medical recordfor internal providers or letter via the [employer] forexternal providers.SUBJECTIVE:Ludmila Hernandes a 52 year old [facility], accompanied by self only, was referred by Jasmine (MANDY), for an initial evaluation for low back.The pain is located in the low back and radiates to bilateral lowerextremities along lateral aspect to the level of toesDistribution: back pain greater than leg pain.Started 10 years ago, was not directly related to injury/trauma, andsymptoms have been persistent.Characterized as aching and sharpCurrently the pain is a rated at a 8 on a scale of 0-10.Worst pain score is rated at 10 on a scale of 0-10.Best pain score is rated at 5 on a scale of 0-10.Aggravated by standing, forward flexion, lifting, getting up from sittingand walking.Mitigated by medications(percocet).Tracey t treatments and response:PercocetInjections SI jointInjectionsPTResponse to previous treatments:Injections didn't help the SI injections did help some PT didn't helpeither the only thing that helps with some of the pain was the percocet.Alcohol Abuse - NoDrug Abuse - NoCurrent Anticoagulant Therapy: NoSleep Disturbance: Yes: Difficulty falling asleep. and Difficulty stayingasleep.PAST MEDICAL HISTORYDiagnosis Date- Anxiety- Arthritis- Depression- Fibromyalgia- HypertensionPAST SURGICAL HISTORYProcedure Laterality Date- SECTION HX x4- HYSTERECTOMY HX- OTHER x3 rt knee surgeries- OTHER x5 rt ankle surgeries- OTHER breast reductionSocial History Marital status: Spouse name: Years of education: Number of children:Social History Main Topics Smoking status: Never Smoker Alcohol use: No Drug use: NoFAMILY HISTORYProblem Relation Age of Onset- Emphysema Mother . Was a smoker- Colon Cancer Father - Emphysema Brother . Was a smokerALLERGIESAllergen Reactions- Lamisil [Terbinafin* GI Upset- Naproxen GI Upset- Neurontin [Gabapent* Itching- Penicillin V Potass* HivesCurrent Outpatient Prescriptions:ALPRAZolam (XANAX) 1 mg tablet Take 1 mg by mouth three times daily.lamoTRIgine (LAMICTAL) 100 mg tablet Take 100 mg by mouth one time only.atenolol (TENORMIN) 25 mg tablet Take 25 mg by mouth once daily.nabumetone (RELAFEN) 500 mg tablet Take 500 mg by mouth twice daily.venlafaxine XR (EFFEXOR XR) 150 mg 24 hr capsule Take 150 mg by mouth oncedaily.venlafaxine ER (EFFEXOR XR) 75 mg 24 hr capsule Take 75 mg by mouth oncedaily.AMITRIPTYLINE HCL (ELAVIL ORAL) Take 150 mg by mouth daily at bedtime.atenolol (TENORMIN) 25 mg tablet Take 25 mg by mouth once daily.pregabalin (LYRICA) 300 mg capsule Take 300 mg by mouth twice daily.fluticasone (FLONASE) 50 mcg/actuation nasal spray Use 1 [place] in eachnostril once daily.No current facility-administered medications for this visit.Review of Symptoms:GENERAL:No weight loss, malaise or fevers., SEE HPIHEENT:Negative for frequent or significant headaches, No changes inhearing or vision, no nose bleeds or other nasal problemsNECK:Positive for lumps, goiter, pain and significant neck swellingRESPIRATORY: Positive for cough, wheezing or shortness of breath.CARDIOVASCULAR: Negative for chest pain, leg swelling and palpitationsGASTROINTESTINAL : Negative for abdominal discomfort, blood in stools orblack stools or change in bowel habitsGENITOURINARY: No history of dysuria, frequency or incontinenceGYN: Negative for abnormal vaginal bleeding, abnormal vaginal dischargeMUSCULOSKELETAL:Pos itive for joint pain or swelling, back pain or musclepain.NEUROLOGIC:Positi ve for focal numbness or weakness, headaches anddizziness or syncope.SKIN:Negative for lesions, rash, and itching.PSYCHIATRIC: Positive for sleep disturbance, mood disorder and recentpsychosocial stressors.HEMATOLOGIC/LYMPHA TIC/IMMUNOLOGIC:Negative for prolonged bleeding,bruising easily or swollen nodes.ENDOCRINE: Negative for cold or heat intolerance, polyuria, polydipsia andgoiter.The remainder of the ROS was negative.PREVIOUS TREATMENTS LASTING SIX WEEKS IN THE LAST SIX MONTHSActive conservative therapy lasting 6 weeks in the last six months ([place]) 1. Physical therapy: Yes: Where: [facility] , Date Started: 04/2017,Date Ended: 06/2017. 2. Home exercise program after PT: No 3. Occupational therapy: No 4. A physician supervised home exercise program (HEP): No 5. Hat Finishing Materials Preparer: NoPassive conservative therapy lasting 6 weeks in the last six months ([place]) 1. Medical devises: No 2. Acupuncture: No 3. Tens unit: No 4. Prescription pain medication: Yes 5. NSAIDS: NoDo you feel safe at home? YesRisk assessment at risk due to fall:Barry Rodriguez [facility]2016 Time: 1:48 PMThe subjective information, including chief complaint, past medicalhistory and review of systems, was explored in detail with the patient andedited as needed and is complete.Elizabeth Johnson, [facility]2016Physical Examination:BP 122/78 Ht 5' 2 (1.58m) Wt 227 lb (103.0kg) BMI 41.51 kg/(m2).General:Obese, well appearing, alert, in no acute distressSkin: skin color, texture, turgor normal, no rashes or lesionsHEENT: normocephalic, atraumatic, sclera non-ictericCardiovascular: Regular rate and rhythm, Radial pulses intact and equalLungs: Respirations even and non-labored.GI: Soft, non-tender, non-distended. Multiple scars with primarilycentral surgical scar.: not examinedMusculoskeletal: Neck: Supple; good ROM. Back: tenderness over entire back and over the bilateral SIJ, left>right. Extremities: all joints NormalNeurological: Mental Status: alert and oriented x 3 Cranial Nerves: Not examined Reflexes: Patellar reflexes are 2+., Biceps reflexes are 2+. Motor Strength: Motor strength and tone are 5/5 all throughout. Sensory: Sensation was intact to light touch all throughout. Gait: Normal.Recent MRI:MRI Spine 10/13/2016There are four nonrib-bearing lumbar vertebral bodies. For namingpurposes, the last normal-appearing lumbar vertebral body will be calledL5.Vertebral height, marrow signal and alignment appears unremarkable.Mild disc desiccation identified at L2/L3 and L3/L4. There is no evidenceofcompression fracture, spinal or paraspinal masses. The distal aspect ofthecord is not studied in detail, but no distal cord expansion isappreciated. Noevidence of compression fracture or sacral insufficiency fracture.L5/S1: A broad-based disc bulge as well as ligamentous hypertrophy andfacetarthropathy result in mild triangulation of the sac. Right side faceteffusionis noted. There is no evidence of central canal stenosis. Moderate rightneuralforaminal narrowing and moderate left neural foraminal narrowing are seen.Thislevel is stable.L4/L5: A broad-based disc bulge is noted. There are bilateral faceteffusionsas well as ligamentum flavum hypertrophy and facet arthropathy. There isnoevidence of central canal stenosis although there is triangulation of thesac.The central canal measures 1.2 cm. There is mild right neural foraminalnarrowing and mild to moderate left neural foraminal narrowing whichappearsstable.L3/L4: A circumferential disc bulge is noted. There is no evidence ofcentralcanal stenosis. There is ligamentum flavum hypertrophy and facetarthropathywith bilateral facet effusions. The central canal measures 1 cm. There ismoderate to severe right neural foraminal narrowing. The left neuralforamendemonstrates mild to moderate foraminal narrowing secondary to discmaterialabutting the exiting L3 nerve root. This level is unchanged.L2/L3: No evidence of central canal stenosis. There is minimal bilateralneuralforaminal narrowing. No significant change.L1/L2: No central canal stenosis or significant neural foraminalnarrowing.The more superior levels demonstrate mild disc bulges, but no centralcanalstenosis or significant neural foraminal narrowing. No abdominal softtissueabnormalities are appreciated.IMPRESSION:1. Please note there are four nonrib-bearing lumbar vertebral bodies. Inkeeping with the prior numbering system, the last lumbar vertebral bodywill becalled L5.2. No significant change from the 03/14/2014 study. Please see level byleveldictation above.OARRS website checked and validated. Oarrs demonstrates evidence ofmulti-sourcing on 3 occassions- August 15, 2017 by Elizabeth Johnson, [facility] AND ASSESSMENT: Paula Christianson, MSN, SALES AND BUSINESS DEVELOPMENT MANAGER was present during the interviewand physical exam.Ludmila Hernandes is a 52 year old female with chronic low back pain withradiation to the B/L LE to the lateral leg to the level of the toes x 10years (LBP>LE pain).The pain is described as aching and sharp, rating her pain today as 8/10with a range of 5-10/10 on her best and worst days respectively. Pain isincreased by standing, forward flexion, lifting, getting up from sittingand walking.Mitigated by medications (Relafen, Percocet, Effexor 75 mg QD,Amitriptyline 150 mg QD, Lamictal 100 mg QD, Lyrica 300 BID, and Xanax 1mg TID PRN). Failed TENs. PT a year ago. Reports that Percocet is theonly medication that has provided some relief. Hx of SIJ injection thathelped and back injections (epidurals that did not help), PT (-06/2017)that did not help.Reports seeing a pain management physician (Dr. Pugh) as she wasinformed that there was nothing more than could be done for her.Pertinent medical history of Bipolar Disorder. Reports history ofintestinal/hernia surgery 2015.Reports that she failed a urine toxicology test - showing no evidence ofthe Percocet in her urine. OARRs shows evidence of multi-sourcing.Denies a personal history of drug, alcohol abuse.Physical exam shows tenderness over entire back and over the bilateralSIJ, left>right.Imaging shows mild disc desiccation identified at L2/L3 and L3/L4. AtL4-L5 and L5/S1: broad-based disc bulges as well as ligamentoushypertrophy and facet arthropathy with mild/moderate impact on the centralcanal.Offered SIJ injections; patient declined. Recommend CPRP. Patient wasadvised that narcotic medications are not recommended.(M46.1) Sacroiliitis (HCC) (primary encounter diagnosis)(M47.817) Lumbosacral spondylosis without myelopathy(F31.9) Bipolar affective disorder, current episode manic, current episodeseverity unspecified (HCC)(F11.90) Chronic, continuous use of opioidsPLAN:1) Offered SIJ injections; patient declined2) Recommend CPRP3) Patient was informed narcotic medications are not recommended.4) RTC PRNThe above plan and management options were discussed at length withpatient. Patient is in agreement with the above and verbalizedunderstanding.Than karen Carreno ([facility]) for allowing me to participate in Ludmila Larson's care.Paula Christianson, EKATERINA-CSeptember 2016 [facility] Encounters Encounter Date Encounter Type Care Provider Facility Start: 03-22-2024 End: 03-22-2024 ambulatory SHAIKH RAMIRO Not Available Start: 02-23-2024 End: 02-23-2024 ambulatory LUIS CUELLAR Not Available Start: 01-06-2024 End: 01-06-2024 Emergency department patient visit LUIS CUELLAR [facility] Start: 01-05-2024 Refill Luis Blackburn Work Phone: [facility] Comment on above: Type 2 diabetes crystal itus with polyneuropathy (CMS/HCC) (Primary Dx); Gastro-esophageal reflux disease without esophagitis; Esophageal reflux Start: 12-28-2022 End: 12-29-[address] LUIS CUELLAR Facility: Start: 09-14-2022 End: 09-15-[address] LUIS CUELLAR Facility: Start: 06-08-2022 End: 06-09-[address] LUIS CUELLAR Facility: Start: 06-09-2021 End: 06-14-2021 ambulatory JOHNNY BELTRAN Facility:[facility] Start: 08-15-2017 End: 08-15-2017 Ambulatory ELIZABETH JOHNSON [facility] Plan of Treatment Date Care Activity Detail Author Start: 10-19-2026 Screening for malign ant neoplasm of colon [facility] Start: 07-29-2023 Influenza vaccination Influenza Vacc ine (#1) [facility] Start: 2005 Screening for malign ant neoplasm of breast Mammogram [facility] Start: 1995 Screening for malign ant neoplasm of cervix [facility] Start: 1986 Screening for malign ant neoplasm of cervix Pap Smear [facility] Start: 1984 Urine screening for protein Diabetes: Urine Protein Screening [facility] Start: 1975 Glaucoma screening Diabetes: R etinopathy Screening [facility] Start: 1965 Hemoglobin A1c measurement Diabetes: Hemoglobin A1C [facility] Start: 1965 Screening for malign ant neoplasm of colon [facility] Payers Date Payer Category Payer Unknown BCBS BCBS xxxxxx [id number] 2018-Present [phone] [address] [place] [address] [id number] 1965 Unknown [id number] 47 1965 Unknown [id number] 93 1965 Unknown [id number] 93 1965 Unknown [id number] 93 1965 Unknown [id number] [id number] 286 1965 Unknown [id number] [id number] 259 1965 Unknown [id number] 259 1959 Medicare [id number] 1959 Unknown [id number] Private Health Insurance CECILY BARTHOLOMEW Social History Date Type Detail Facility Tobacco smoking stat [place] Tobacco smoking consumption unknown [facility] Start: 1965 Sex Assigned At Not on file [facility] Gender identity Not on file [facility] Evaluation note Note Date & Type Note Facility Evaluation note Diagnosis Type 2 diabetes mellitus with polyneuropathy (CMS/HCC)- Primary Type II or unspecified type diabetes mellitus with neurological manifestations, not stated as uncontrolled Gastro-esophageal reflux disease without esophagitis Esophageal reflux documented in this encounter [facility] Summary Purpose Family History No Family History Records FoundNo Family History Records FoundNo Family History Records FoundNo Family History Records FoundNo Family History Records Found Advance Directives No Advanced Directives Records FoundNo Advanced Directives Records FoundNo Advanced Directives Records FoundNo Advanced Directives Records FoundNo Advanced Directives Records Found Additional Source Comments INFORMATION SOURCE (unrecogn ized section and content) DATE CREATED AUTHOR 05/24/2018 [facility] DATE CREATED AUTHOR AUTHOR'S ORGANIZ ATION 06/18/2022 [facility] DATE CREATED AUTHOR AUTHOR'S ORGANIZ ATION 03/30/2023 [facility] DATE CREATED AUTHOR AUTHOR'S ORGANIZ ATION 01/09/2024 [facility] DATE CREATED AUTHOR AUTHOR'S ORGANIZ ATION 03/24/2024 [facility] Reason for Visit (unrecogniz ed section and content) Reason Comments Med Refill Care Teams (unrecognized sec tion and content) Supervisor Grips Relationship Specialty Start Date End Date Luis Cuellar MD PCP - General Family Medicine 06/15/23 FOR RECORDS PERTAINING TO PATIENTS WHO ARE OR HAVE BEEN ENROLLED IN A CHEMICAL DEPENDENCY/SUBSTANCEABUSE PROGRAM, SOME INFORMATION MAY BE OMITTED. This clinical summary was aggregated from multiple sources. Caution should be exercised in using it in the provision of clinical care. This summary normalizes information from multiple sources, and as a consequence, information in this document may materially change the coding, format and clinical context of patient data. In addition, data may be omitted in some cases. CLINICAL DECISIONS SHOULD BE BASED ON THE PRIMARY CLINICAL RECORDS. [facility] [employer] provides no warranty or guarantee of the accuracy or completeness of information in this document.
== END 2024-04-26 09:39 | disposition home or self-care (01) ==
LOC: MRI 09:38
PROVIDERS: PCP Family Medicine; Visit Provider Internal Medicine
DX: M25.511 Pain in right shoulder (principal); M77.8 Other enthesopathies, not elsewhere classified; M19.011 Primary osteoarthritis, right shoulder
CPT/HCPCS: 73221

== ENCOUNTER 2024-05-08 16:47 | Outpatient (OUT) | payer BC, MEDICARE, SELFPAY ==
--- OUTSIDE RECORDS SUMMARY | 2024-05-08 16:57 | XMS_ITS | CCD ---
Author Organization [facility] Care Team Providers Care Geographic Information Scientist Name Role Phone ELIZABETH JOHNSON Unavailable Unavailable [...] Unavailable NADERER, DR LUIS Cameron Attending Unavailable uLis Cuellar MD Primary Care Provider [phone] LUIS CUELLAR Primary Care Unavailable ALISA, LUIS Attending Unavailable SHAIKH RUBIO Attending Unavailable Allergies Allergy Classification Reported Allergen(s) Allergy Type Date of Onset Reaction(s) Facility (2 sources) gabapentin; Translations: [GABAPENTIN] [facility] naproxen; Translations: [NAPROXEN] [facility] Penicillin V Potassium; Translations: [PENICILLIN V POTASSIUM] Propensity to adverse reactions to drug (disorder) 5 [facility] Repository (1 source) terbinafine; Translations: [TERBINAFINE HCL] Drug Allergy 5 [facility] Repository (1 source) DULoxetine; Translations: [CYMBALTA] Drug Allergy 6 [facility] Repository (2 sources) gabapentin Drug Allergy 4 [facility] Repository (1 source) lamoTRIgine Drug Allergy 4 [facility] Repository (2 sources) Penicillins; Translations: [PENICILLINS] Drug allergy (disorder) 4 [facility] Repository (1 source) cyclobenzaprine Drug Allergy 7 [facility] Repository (1 source) Penicillin Drug Allergy 7 [facility] Repository (1 source) NSAIDs; Translations: [NSAIDS [...] Onset: 06-10-2022 Chronic Other aftercare (1 source) terminal makeup operator (current) use of insulin; Translations: [CORRECTION CURRENT USE OF INSULIN] Onset: 12-29-2022 Episodic [...] te Episodic/Chronic Other aftercare (1 source) Other fci (current) drug therapy; Translations: [OTH CORRECTION CURRENT DRUG THERAPY] Onset: 06-10-2022 Episodic Results Test Name Value Interpretation Reference Range Facility GLYCOHEMOGLOBIN A1Con 2022 ADA RECOMMENDATION SEE BELOW Normal [facility] Comment on above: Result Comment: ADA RECOMMENDED LIMIT 4.0 - 6.0 ADA THERAPEUTIC TARGET < 7.0 ACTION SUGGESTED > 7.0 Performed By: #### A 1C #### [facility] [address] [place] [address] Dr. Anali Underwood Glucose [Mass/Vol] 183 mg/dL Normal [facility] Comment on above: Performed By: #### A 1C #### [facility] [address] [place] [address] Dr. Anali Underwood HbA1c (Bld) [Mass fraction] 8.0 % Critically high 4.5-6.2 [facility] Comment on above: Performed By: #### A 1C #### [facility] [address] [place] [address] Dr. Anali Underwood GLYCOHEMOGLOBIN A1Con 2021 ADA RECOMMENDATION SEE BELOW Normal [facility] Comment on above: Result Comment: ADA RECOMMENDED LIMIT 4.0 - 6.0 ADA THERAPEUTIC TARGET < 7.0 ACTION SUGGESTED > 7.0 Performed By: #### A 1C #### [facility] [address] [place] [address] Dr. Anali Udnerwood Glucose [Mass/Vol] 174 mg/dL Normal [facility] Comment on above: Performed By: #### A 1C #### [facility] [address] [place] [address] Dr. Anali Underwood HbA1c (Bld) [Mass fraction] 7.7 % Critically high 4.5-6.2 [facility] Comment on above: Performed By: #### A 1C #### [facility] [address] [place] [address] Dr. Anali Underwood CBC AUTO DIFFon 06-08-2022 BASO # 0.1 103/ul Normal 0.0-0.1 [facility] Comment on above: Performed By: #### C BC #### [facility] [address] [place] [address] Dr. Anali Underwood Basophils/100 WBC (Bld) 1.0 % Normal 0.2-2.0 [facility] Comment on above: Performed By: #### C BC #### [facility] [address] [place] [address] Dr. Anali Underwood EO # 0.1 103/ul Normal 0.0-0.7 [facility] Comment on above: Performed By: #### C BC #### [facility] [address] [place] [address] Dr. Anali Underwood Eosinophils/100 WBC (Bld) 1.1 % Normal 0.9-7.0 [facility] Comment on above: Performed By: #### C BC #### [facility] [address] [place] [address] Dr. Anali Underwood Erythrocyte distribution width (RBC) [Ratio] 19.8 % Critically high 11.0-15.0 [facility] Comment on above: Performed By: #### C BC #### [facility] [address] [place] [address] Dr. Anali Underwood Hematocrit (Bld) [Volume fraction] 36.4 % Normal 36.0-48.0 [facility] Comment on above: Performed By: #### C BC #### [facility] [address] [place] [address] Dr. Anali Underwood Hemoglobin (Bld) [Mass/Vol] 10.7 g/dL Critically low 12.0-16.0 [facility] Comment on above: Performed By: #### C BC #### [facility] [address] [place] [address] Dr. Anali Underwood IG # 0.02 10e3/ul Normal 0.00-0.03 [facility] Comment on above: Performed By: #### C BC #### [facility] [address] [place] [address] Dr. Anali Underwood IG % 0.3 % Normal 0.0-0.5 [facility] Comment on above: Performed By: #### C BC #### [facility] [address] [place] [address] Dr. Anali Underwood LYMPH # 2.3 103/ul Normal 1.2-3.8 [facility] Comment on above: Performed By: #### C BC #### [facility] [address] [place] [address] Dr. Anali Underwood Lymphocytes/100 WBC (Bld) 31.7 % Normal 20.5-60.0 [facility] Comment on above: Performed By: #### C BC #### [facility] [address] [place] [address] Dr. Anali Underwood MANUAL DIFF REQ NO Normal [facility] Comment on above: Performed By: #### C BC #### [facility] [address] [place] [address] Dr. Anali Underwood MCH (RBC) [Entitic mass] 22.7 pg Critically low 26.7-34.0 [facility] Comment on above: Performed By: #### C BC #### [facility] [address] [place] [address] Dr. Anali Underwood MCHC (RBC) [Mass/Vol] 29.4 g/dL Critically low 29.9-35.2 [facility] Comment on above: Performed By: #### C BC #### [facility] [address] [place] [address] Dr. Anali Underwood MCV (RBC) [Entitic vol] 77.3 fL Critically low 81.0-99.0 [facility] Comment on above: Performed By: #### C BC #### [facility] [address] [place] [address] Dr. Anali Underwood MONO # 0.6 103/ul Normal 0.3-0.8 [facility] Comment on above: Performed By: #### C BC #### [facility] [address] [place] [address] Dr. Anali Underwood Monocytes/100 WBC (Bld) 8.1 % Normal 1.7-12.0 [facility] Comment on above: Performed By: #### C BC #### [facility] [address] [place] [address] Dr. Anali Underwood NEUT # 4.1 103/ul Normal 1.4-6.5 [facility] Comment on above: Performed By: #### C BC #### [facility] [address] [place] [address] Dr. Anali Underwood Neutrophils/100 WBC (Bld) 57.8 % Normal 43.0-75.0 [facility] Comment on above: Performed By: #### C BC #### [facility] [address] [place] [address] Dr. Anali Underwood Platelet mean volume (Bld) [Entitic vol] 11.6 fL Normal 9.5-13.5 [facility] Comment on above: Performed By: #### C BC #### [facility] [address] [place] [address] Dr. Anali Underwood PLT 248 103/ul Normal 150-450 [facility] Comment on above: Performed By: #### C BC #### [facility] [address] [place] [address] Dr. Anali Underwood RBC 4.71 106/ul Normal 4.20-5.40 [facility] Comment on above: Performed By: #### C BC #### [facility] [address] [place] [address] Dr. Anali Underwood WBC 7.2 103/ul Normal 4.0-11.0 [facility] Comment on above: Performed By: #### C BC #### [facility] [address] [place] [address] Dr. Anali Underwood GLYCOHEMOGLOBIN A1Con 2021 ADA RECOMMENDATION SEE BELOW Normal [facility] Comment on above: Result Comment: ADA RECOMMENDED LIMIT 4.0 - 6.0 ADA THERAPEUTIC TARGET < 7.0 ACTION SUGGESTED > 7.0 Performed By: #### A 1C #### [facility] [address] [place] [address] Dr. Anali Underwood Glucose [Mass/Vol] 171 mg/dL Normal [facility] Comment on above: Performed By: #### A 1C #### [facility] [address] [place] [address] Dr. Anali Underwood HbA1c (Bld) [Mass fraction] 7.6 % Critically high 4.5-6.2 [facility] Comment on above: Performed By: #### A 1C #### [facility] [address] [address] [address] Anali Underwood LIPID PROFILEon 06-08-2022 CHOL-HDL RATIO NORM SEE BELOW Normal [facility] Comment on above: Result Comment: 3.3 - 4.4 LOW RISK 4.4 - 7.1 AVERAGE RISK 7.1 - 11.0 MODERATE RISK >11.0 HIGH RISK Performed By: #### L IPID, LIVER, BMP, TSH #### [facility] [address] [address] [address] Anali Underwood Cholesterol [Mass/Vol] 148 mg/dL Normal <=200 [facility] Comment on above: Performed By: #### L IPID, LIVER, BMP, TSH #### [facility] [address] [address] [address] Anali Underwood Cholesterol in HDL [Mass/Vol] 58 mg/dL Normal 40-60 [facility] Comment on above: Performed By: #### L IPID, LIVER, BMP, TSH #### [facility] [address] [address] [address] Anali Underwood Cholesterol in LDL [Mass/Vol] 66.4 mg/dL Normal [facility] Comment on above: Performed By: #### L IPID, LIVER, BMP, TSH #### [facility] [address] [address] [address] Anali Underwood Cholesterol.total/ Cholesterol in HDL [Mass ratio] 2.6 {ratio} Normal [facility] Comment on above: Performed By: #### L IPID, LIVER, BMP, TSH #### [facility] [address] [address] [address] Anali Underwood HDL NORMAL > or = 60 mg/dl - LO W CARDIOVASCULAR RISK <40 mg/dl - HIGH CARDIOVASCULAR RISK Normal [facility] Comment on above: Performed By: #### L IPID, LIVER, BMP, TSH #### [facility] [address] [place] [address] Dr. Anali Underwood LDL CALC NORMAL SEE BELOW Normal [facility] Comment on above: Result Comment: <100 mg/dl OPTIMAL 100 - 129 mg/dl NEAR OR ABOVE OPTIMAL 130 - 159 mg/dl BORDERLINE HIGH 160 - 189 mg/dl HIGH >190 mg/dl VERY HIGH Performed By: #### L IPID, LIVER, BMP, TSH #### [facility] [address] [place] [address] Dr. Anali Underwood Triglyceride [Mass/Vol] 118 mg/dL Normal <=150 [facility] Comment on above: Performed By: #### L IPID, LIVER, BMP, TSH #### [facility] [address] [address] [address] Anali Underwood VLDL CALC 23.6 mg/dL Normal [facility] Comment on above: Performed By: #### L IPID, LIVER, BMP, TSH #### [facility] [address] [place] [address] Dr. Anali Underwood LIVER PROFILEon 06-08-2022 Albumin [Mass/Vol] 4.2 g/dL Normal 3.4-5.0 [facility] Comment on above: Performed By: #### L IPID, LIVER, BMP, TSH #### [facility] [address] [address] [address] Anali Underwood Albumin/Globulin [Mass ratio] 1.0 {ratio} Normal [facility] Comment on above: Performed By: #### L IPID, LIVER, BMP, TSH #### [facility] [address] [place] [address] Dr. Anali Underwood ALP [Catalytic activity/Vol] 93 U/L Normal 46-116 [facility] Comment on above: Performed By: #### L IPID, LIVER, BMP, TSH #### [facility] [address] [place] [address] Dr. Anali Underwood ALT [Catalytic activity/Vol] 59 U/L Normal 14-59 [facility] Comment on above: Performed By: #### L IPID, LIVER, BMP, TSH #### [facility] [address] [place] [address] Dr. Anali Underwood AST [Catalytic activity/Vol] 99 U/L Critically high 15-37 [facility] Comment on above: Performed By: #### L IPID, LIVER, BMP, TSH #### [facility] [address] [place] [address] Dr. Anali Underwood BILI, CONJUGATED 0.0 mg/dL Normal 0.0-0.2 [facility] Comment on above: Performed By: #### L IPID, LIVER, BMP, TSH #### [facility] [address] [place] [address] Dr. Anali Underwood Bilirubin [Mass/Vol] 0.4 mg/dL Normal 0.2-1.0 [facility] Comment on above: Performed By: #### L IPID, LIVER, BMP, TSH #### [facility] [address] [place] [address] Dr. Anali Underwood Globulin (S) [Mass/Vol] 4.2 g/dL Normal [facility] Comment on above: Performed By: #### L IPID, LIVER, BMP, TSH #### [facility] [address] [place] [address] Dr. Anali Underwood Protein [Mass/Vol] 8.4 g/dL Critically high 6.4-8.2 [facility] Comment on above: Performed By: #### L IPID, LIVER, BMP, TSH #### [facility] [address] [place] [address] Dr. Anali Underwood MICROALBUMIN, RAND URon 07- mALB 0.9 mg/L Normal <=30.0 [facility] Comment on above: Performed By: #### M ALBR #### [facility] [address] [place] [address] Dr. Anali Underwood PROF CHEM 8 (BAS METB)on Anion gap [Moles/Vol] 15.2 mmol/L Normal [facility] Comment on above: Performed By: #### L IPID, LIVER, BMP, TSH #### [facility] [address] [place] [address] Dr. Anali Underwood Calcium [Mass/Vol] 9.6 mg/dL Normal 8.5-10.1 [facility] Comment on above: Performed By: #### L IPID, LIVER, BMP, TSH #### [facility] [address] [address] [address] Anali Underwood Chloride [Moles/Vol] 101 mmol/L Normal 98-107 [facility] Comment on above: Performed By: #### L IPID, LIVER, BMP, TSH #### [facility] [address] [address] [address] Anali Underwood CO2 [Moles/Vol] 29.9 mmol/L Normal 21.0-32.0 [facility] Comment on above: Performed By: #### L IPID, LIVER, BMP, TSH #### [facility] [address] [place] [address] Dr. Anali Underwood Creatinine [Mass/Vol] 0.67 mg/dL Normal 0.55-1.02 [facility] Comment on above: Performed By: #### L IPID, LIVER, BMP, TSH #### [facility] [address] [place] [address] Dr. Anali Underwood EGFR-AF SWISS >60 Normal >=60 [facility] Comment on above: Performed By: #### L IPID, LIVER, BMP, TSH #### [facility] [address] [place] [address] Dr. Anali Underwood EGFR-NON AF SWISS >60 Normal >=60 [facility] Comment on above: Performed By: #### L IPID, LIVER, BMP, TSH #### [facility] [address] [place] [address] Dr. Anali Underwood Glucose [Mass/Vol] 69 mg/dL Critically low 74-106 [facility] Comment on above: Performed By: #### L IPID, LIVER, BMP, TSH #### [facility] [address] [place] [address] Dr. Anali Underwood Potassium [Moles/Vol] 5.1 mmol/L Normal 3.5-5.1 [facility] Comment on above: Performed By: #### L IPID, LIVER, BMP, TSH #### [facility] [address] [address] [address] Anali Underwood Sodium [Moles/Vol] 141 mmol/L Normal 136-145 [facility] Comment on above: Performed By: #### L IPID, LIVER, BMP, TSH #### [facility] [address] [address] [address] Anali Underwood Urea nitrogen [Mass/Vol] 14.0 mg/dL Normal 7.0-18.0 [facility] Comment on above: Performed By: #### L IPID, LIVER, BMP, TSH #### [facility] [address] [address] [address] Anali Underwood Urea nitrogen/Creatinin e [Mass ratio] 20.9 mg/mg Normal [facility] Comment on above: Performed By: #### L IPID, LIVER, BMP, TSH #### [facility] [address] [address] [address] Anali Underwood TSHon 06-08-2022 TSH 1.511 uIU/mL Normal 0.358-3.740 [facility] Comment on above: Performed By: #### L IPID, LIVER, BMP, TSH #### [facility] [address] [address] [address] Anali Underwood CNOVon 08-15-2017 CNOV Office Visit (PAINLN) ----LUDMILA HERNANDES ([id number]) [address] [facility] Department08/15/17 1:30 PM [...] record for internal providersor letter via the [employer] for external providers.SUBJECTIVE:Ludmila Hernandes a 52 year old [facility] accompanied by self only, was [...] (FLONASE) 50 mcg/actuation nasal spray Use 1 Sparkman in each nostrilonce daily.No current facility-administered medications [...] supervised home exercise program (HEP): No 5. Roof Bolting Coal Miner: NoPassive conservative therapy lasting 6 weeks in the last six months (see below) 1. Medical devises: No 2. Acupuncture: No 3. Tens unit: No 4. Prescription pain medication: Yes 5. NSAIDS: NoDo you feel safe at home? YesRisk assessment at risk due to fall:Barry Rodriguez [facility]2016 Time: 1:48 PMThe subjective information, including chief complaint, past medical history andreview of systems, was explored in detail with the patient and edited as neededand is complete.Elizabeth Johnson, [facility] Examination:BP 122/78 Ht 5' 2ANDquot; (1.58m) Wt [...] occassions- August 15, 2017 by Elizabeth Johnson [facility]AM[facility]; ASSESSMENT: Paula Christianson, MSN, TRAFFIC OPERATIONS ENGINEER was present during the interviewand physical exam.Ludmila [...] medications (Relafen, Percocet, Effexor 75 mg QD, Vgvwqmbbivtag542 mg QD, Lamictal 100 mg QD, Lyrica [...] above and verbalized understanding.Thank you Sary Carreno ([facility]) for allowing me to participate in Ludmila Larson's care.Paula Christianson, FARM ADVISOR-CSept2016Referring Provider: SARY CARRENO [[id number]]Allergies As of Date: 08/15/2017 Noted Allergy ReactionLAMISIL (TERBINAFINE HCL) 02/06/2015 8 - GI UpsetNAPROXEN 02/06/2015 8 - GI UpsetNEURONTIN (GABAPENTIN) 02/06/2015 9 - ItchingPENICILLIN V POTASSIUM 02/06/2015 4 - HivesDate Reviewed: 08/15/2017Reviewed by: Paula Quesada ([facility]) Sammy - Fully AssessedReason for Visit: Consult [502] Cmt: new patientPrimary Visit Diagnosis:Sacroiliitis (HCC) [M46.1] Other Visit Diagnoses:Lumbosacral spondylosis without myelopathy [M47.817] Bipolar affective disorder, current episode manic, current episode severity unspecified (HCC) [F31.9] Chronic, continuous use of opioids [F11.90]Order(s):CONSULT TO CHRONIC PAIN REHABILITATION (NON-PAIN ANESTHESIA) [7285593] Order #: [id number]: 1Prescriptions as of 08/15/2017 Sig: ALPRAZOLAM 1 [...] da* FLUTICASONE 50 MCG/ACTUATION * Use 1 Sparkman in each nostril o*Problem List As Of [...] on file.Follow-up and Disposition History RecordedEncounter Number: [id number] Status:Closed by ELIZABETH JOHNSON DO on 08/24/17 [facility] PROGRESSon 08-15-2017 PROGRESS HNO ID: [id number] thor: Elizabeth WhitesService: (none)Author Type: PhysicianType: Progress NotesFiled: 08/24/2017 5:07 PMNote Text:[facility] Initial EvaluationS2016 - 1:37 PMThis appointment was requested by Sary Carreno (MANDY), for my medicalopinion regarding? the evaluation and management of the patient's Ludmila Larson problems, and my final recommendations will be communicated tothe requesting health care provider by way of the shared medical recordfor internal providers or letter via the [employer] forexternal providers.SUBJECTIVE:Ludmila Hernandes a 52 year old [facility], accompanied by self only, was [...] (FLONASE) 50 mcg/actuation nasal spray Use 1 Sparkman in eachnostril once daily.No current facility-administered medications [...] supervised home exercise program (HEP): No 5. Roof Bolting Coal Miner: NoPassive conservative therapy lasting 6 weeks in the last six months (seebelow) 1. Medical devises: No 2. Acupuncture: No 3. Tens unit: No 4. Prescription pain medication: Yes 5. NSAIDS: NoDo you feel safe at home? YesRisk assessment at risk due to fall:[facility]2016 Time: 1:48 PMThe subjective information, including chief complaint, past medicalhistory and review of systems, was explored in detail with the patient andedited as needed and is complete.Elizabeth Johnson, [facility]2016Physical Examination:BP 122/78 Ht 5' 2 (1.58m) Wt [...] occassions- August 15, 2017 by Elizabeth Johnson, [facility] AND ASSESSMENT: Paula Christianson, MSN, TRAFFIC OPERATIONS ENGINEER was present during the interviewand physical exam.Ludmila [...] with the above and verbalizedunderstanding.Than karen Carreno ([facility]) for allowing me to participate in Ludmila Larson's care.Paula Christianson, EKATERINA-CSeptember 2016 Normal [facility] Encounters Encounter Date Encounter Type Care Provider Facility Start: 03-22-2024 End: 03-22-2024 ambulatory SHAIKH RAMIRO Not Available Start: 02-23-2024 End: 02-23-2024 ambulatory LUIS CUELLAR Not Available Start: 01-06-2024 End: 01-06-2024 Emergency department patient visit LUIS CUELLAR [facility] Start: 01-05-2024 Refill Luis Blackburn Work Phone: [facility] Comment on above: Type 2 diabetes [...] Start: 08-15-2017 End: 08-15-2017 Ambulatory ELIZABETH JOHNSON [facility] Plan of Treatment Date Care Activity Detail Author Start: 10-19-2026 Screening for malign ant neoplasm of colon [facility] Start: 07-29-2023 Influenza vaccination Influenza Vacc ine (#1) [facility] Start: 2005 Screening for malign ant neoplasm of breast Mammogram [facility] Start: 1995 Screening for malign [...] Payer Category Payer Unknown BCBS BCBS xxxxxx [id number] 2018-Present [phone] [address] [place] [address] [id number] 1965 Unknown [id number] 47 1965 Unknown [id number] 93 1965 Unknown [id number] 93 1965 Unknown [id number] 93 1965 Unknown [id number] 286 1965 Unknown [id number] 259 1965 Unknown [id number] 259 1959 Medicare [id number] 1959 Unknown [id number] Private Health Insurance CECILY BARTHOLOMEW Social History Date Type Detail Facility Tobacco smoking stat [facility] Tobacco smoking consumption unknown [facility] Start: 1965 Sex Assigned At Not on file [facility] Gender identity Not on file [facility] are Evaluation note Note Date [...] section and content) DATE CREATED AUTHOR 05/24/2018 [facility] DATE CREATED AUTHOR AUTHOR'S ORGANIZ ATION 06/18/2022 [facility] DATE CREATED AUTHOR AUTHOR'S ORGANIZ ATION 03/30/2023 [facility] DATE CREATED AUTHOR AUTHOR'S ORGANIZ ATION 01/09/2024 [facility] DATE CREATED AUTHOR AUTHOR'S ORGANIZ ATION 03/24/2024 [facility] EPIC Reason for Visit (unrecogniz ed section and content) Reason Comments Med Refill Care Teams (unrecognized sec tion and content) Geographic Information Scientist Relationship Specialty Start Date End Date Luis [...] BE BASED ON THE PRIMARY CLINICAL RECORDS. [facility] [employer] provides no warranty or guarantee of the accuracy or completeness of information in this document.
--- NOTE | 2024-05-08 16:59 | XR_ITS ---
The [address] [address] Patient Name: CHASTITY HERNANDES MRN: [id number] date: 1965 Sex: F Assigned Patient Location: [facility] Current Patient Location: Accession/Order Number: [id number] Exam Date: 05/08/2024 17:09 Report Date: 05/09/2024 07:29 At the request of: RAIN CUELLAR Procedure: XR lumbar spine 2-3V EXAMINATION: XR lumbar spine 2-3V HISTORY: Spinal stenosis, lumbar region M48.061 COMPARISON: No relevant comparison available. FINDINGS: BONES: Normal alignment with no acute fracture or spondylolisthesis. Posterior decompression and transpedicular fusion L3-L4. No mechanical failure. Mild degenerative spondylosis. Moderate facet osteoarthropathy DISC SPACES: Interbody spacer L4-5 PARASPINOUS: Negative. No paraspinous abnormality is seen. OTHER: Negative. XR/XR lumbar spine 2-3V IMPRESSION: Posterior fusion L4-5 with no mechanical failure Electronically authenticated by: BERNABE BROWN Date: 05/09/2024 07:29
== END 2024-05-08 16:48 | disposition home or self-care (01) ==
PROVIDERS: PCP Family Medicine; Visit Provider Family Medicine
DX: M48.061 Spinal stenosis, lumbar region without neurogenic claudication (principal)
CPT/HCPCS: 72100

== ENCOUNTER 2024-07-17 13:04 | Outpatient (OUT) | payer BC, MEDICARE, SELFPAY ==
--- NOTE | 2024-07-17 13:13 | MR_ITS ---
The [address] [address] Patient Name: CHASTITY HERNANDES MRN: [id number] date: 1965 Sex: F Assigned Patient Location: MRI Current Patient Location: Accession/Order Number: [id number] Exam Date: 07/17/2024 13:48 Report Date: 07/19/2024 05:37 At the request of: RAIN CUELLAR Procedure: MR lumbar spine wo con EXAMINATION: MR lumbar spine wo con HISTORY: Lumbar Spinal Stenosis ; total back pain, bilateral leg pain COMPARISON: XR lumbar spine 05/08/2024, MRI lumbar spine 10/12/2016 TECHNIQUE: A variety of imaging planes and parameters were utilized for visualization of suspected pathology. FINDINGS: For the purposes of numbering, sagittal T2 image # 8 extends from the T11 vertebral body superiorly to the S4 level inferiorly. PARASPINAL AREA: Normal with no visible mass. BONES: Mechanical fusion L3-L4 via bilateral pedicle screws and rods. No fracture, pars defect, or osseous lesion. CORD/CAUDA EQUINA: Normal caliber, contour, and signal intensity. DISC LEVELS: 12-L1: No significant disc/facet abnormality, spinal stenosis, or foraminal stenosis. L1-L2: No significant disc/facet abnormality, spinal stenosis, or foraminal stenosis. L2-L3: Moderate central canal and bilateral foramen narrowing. Moderate diffuse disc bulging and minimal disc at reduction. Marked left degenerative facet arthropathy, mild on right. L3-L4: Moderate left foramen narrowing. No significant central canal or right foramen narrowing. Mild diffuse disc bulging and prior intervertebral disc spacer placement. Suspect degenerative facet hypertrophy bilaterally. Posterior mechanical fusion L3-L4 with subsequent metallic streak artifact limiting evaluation of the facet joints. L4-L5: Moderate central canal. Marked right, moderate left foramen narrowing. Moderate diffuse disc bulging without disc at reduction. Mild/moderate degenerative facet arthropathy and moderate ligamentum flavum thickening. L5-S1: Moderate marked foramen narrowing bilaterally. Mild central canal narrowing. Mild diffuse disc bulging and degenerative facet arthropathy bilaterally. MR/MR lumbar spine wo con IMPRESSION: 1. Multilevel moderate foramen narrowing, with marked or borderline marked narrowing at L4-L5 on the right and L5-S1 bilaterally. 2. L3-L4 posterior mechanical fusion and intervertebral disc spacer. Electronically authenticated by: ELAN VILLARREAL Date: 07/19/2024 05:37
== END 2024-07-17 13:05 | disposition home or self-care (01) ==
LOC: MRI 13:06
PROVIDERS: PCP Family Medicine; Visit Provider Family Medicine
DX: M48.061 Spinal stenosis, lumbar region without neurogenic claudication (principal); M43.26 Fusion of spine, lumbar region
CPT/HCPCS: 72148

== ENCOUNTER 2024-09-04 09:22 | Outpatient (OUT) | payer BC, MEDICARE, SELFPAY ==
--- OUTSIDE RECORDS SUMMARY | 2024-09-04 09:36 | XMS_ITS | CCD ---
Author Organization [facility] Care Team Providers Care Lead Pl Sql Developer Name Role Phone ELIZABETHELIZABETH Unavailable Unavailable SARY CARRENO Unavailable Unavailable ELTAHAWY, JOHNNY A Attending Unavailable ELTAHAWCrispin, JOHNNY Cameron Admitting Unavailable NADERELUIS Aguilar Referring Unavailable NADERER, LUIS Primary Care Unavailable NADEREJeff, DR LUIS Cameron Attending Unavailable NADERER, DR [...] Unavailable NADERER, DR LUIS Cameron Attending Unavailable Naderer Luis WHARTON Primary Care Provider LUIS CUELLAR Primary Care Unavailable SHAUNA HUYNH Attending Unavailable SHAUNA HUYNH Attending Unavailable SHAUNA HUYNH Referring Unavailable NADEREJeff, LUIS Primary Care Unavailable NADERER, LUIS Referring Unavailable NADERER, LUIS Primary Care Unavailable NADEREJeff, LUIS Primary Care Unavailable NADAVRIL, LUIS Referring Unavailable NADEREJeff, LUIS Primary Care Unavailable NADAVRIL, LUIS Attending Unavailable SHAIKH RUBIO Attending Unavailable NADERER, LUIS Attending Unavailable NADERER, LUIS Attending Unavailable NADERER, LUIS Attending Unavailable NADERER, LUIS Attending Unavailable Allergies Allergy Classification Reported Allergen(s) Allergy Type Date of Onset Reaction(s) Facility (3 sources) gabapentin; Translations: [GABAPENTIN] Drug Allergy 5 [facility] Repository (2 sources) naproxen; Translations: [NAPROXEN] Drug Allergy 4 [facility] Repository (1 source) Penicillin V Potassium; Translations: [PENICILLIN V POTASSIUM] Propensity to adverse reactions to drug (disorder) 5 [facility] Repository (1 source) terbinafine; Translations: [TERBINAFINE HCL] Drug Allergy 5 [facility] Repository (1 source) DULoxetine; Translations: [CYMBALTA] Drug Allergy 6 [facility] Repository (2 sources) gabapentin Drug Allergy 4 [facility] Repository (1 source) lamoTRIgine Drug Allergy 4 [facility] Repository (3 sources) Penicillins; Translations: [PENICILLINS] Drug allergy (disorder) 4 [facility] Repository (1 source) cyclobenzaprine Drug Allergy 7 [facility] Repository (1 source) Penicillin Drug Allergy 7 [facility] Repository (2 sources) NSAIDs; Translations: [NSAIDS (NON-STEROIDAL ANTI-INFLAMMATORY DRUG)] Propensity [...] major depressive disorder, unspecified depression episode severity ([facility]/HCC) TAKE 1 TABLET BY MOUTH EVERYDAY AT [...] Indications: Type 2 diabetes mellitus with polyneuropathy ([facility]) Take 1 capsule (300 mg) by mouth [...] [Type 2 diabetes mellitus] Onset: 12-28-2022 Chronic E Codes: Fall (1 source) Unspecified fall, initial encounter; Translations: [Unspecified fall, initial encounter] Onset: 05-17-2024 Episodic E Codes: Fall (1 source) Fall Onset: 05-17-2024 Esophageal disorders (2 sources) Gastroesophageal reflux disease without esophagitis; Translations: [Gastro-esophageal reflux disease without esophagitis] 01-05-2024 Chronic Essential hypertension (1 source) Essential (primary) hypertension; Translations: [ESSENTIAL PRIMARY HYPERTENSION] Onset: 06-10-2022 Chronic Other aftercare (1 source) FPC (current) use of insulin; Translations: [ADULT NURSE PRACTITIONER CURRENT USE OF INSULIN] Onset: 12-29-2022 Episodic Other nutritional; endocrine; and metabolic disorders (1 source) Morbid (severe) obesity due to excess calories; Translations: [MORBID SEVERE OBES D/T EXCESS RJ] Onset: 06-10-2022 Chronic Residual codes; unclassified (1 source) Pain, unspecified; Translations: [Pain, unspecified] Onset: 08-17-2024 Episodic Spondylosis; intervertebral disc disorders; other back problems (1 source) Radiculopathy, lumbar region; Translations: [Radiculopathy, lumbar region] Onset: 05-21-2024 Episodic Superficial injury; contusion (3 sources) Contusion of right knee, initial encounter; Translations: [Abrasion, right knee, initial encounter] Onset: 01-06-2024 Episodic Unclassified (1 source) EMS Onset: 05-17-2024 Unclassified (1 source) Foreign Body in Eye Onset: 01-06-2024 Past or Other Problems Problem Classification Problem Date Documented Da te Episodic/Chronic Other aftercare (1 source) Other long-term (current) drug therapy; Translations: [OTH ADULT NURSE PRACTITIONER CURRENT DRUG THERAPY] Onset: 06-10-2022 Episodic Results Test Name Value Interpretation Reference Range Facility XR FEMUR RT 2+ VIEWSon 05-17 XR FEMUR RT 2+ VIEWS XR FEMUR RT 2+ VIEWS Right femur HISTORY: Injury and pain COMPARISON: None FINDINGS: There is an intramedullary charity within the right femur. There is a healed fracture involving the femoral diaphysis. There are no acute fractures or dislocations seen. IMPRESSION: No acute process Finalized by Kati Curiel DO on 05/17/2024 4:[address] [facility] GLYCOHEMOGLOBIN A1Con 2022 ADA RECOMMENDATION SEE BELOW Normal [facility] Comment on above: Result Comment: ADA RECOMMENDED LIMIT 4.0 - 6.0 ADA THERAPEUTIC TARGET < 7.0 ACTION SUGGESTED > 7.0 Performed By: #### A 1C #### [facility] [address] [place], [place] [address] Dr. Anali Underwood Glucose [Mass/Vol] 183 mg/dL Normal [facility] Comment on above: Performed By: #### A 1C #### [facility] [address] [place], [place] [address] Dr. Anali Underwood HbA1c (Bld) [Mass fraction] 8.0 % Critically high 4.5-6.2 [facility] Comment on above: Performed By: #### A 1C #### [facility] [address] [place] [address] Dr. Anali Underwood GLYCOHEMOGLOBIN A1Con 2021 ADA RECOMMENDATION SEE BELOW Normal [facility] Comment on above: Result Comment: ADA RECOMMENDED LIMIT 4.0 - 6.0 ADA THERAPEUTIC TARGET < 7.0 ACTION SUGGESTED > 7.0 Performed By: #### A 1C #### [facility] [address] [place] [address] Dr. Anali Underwood Glucose [Mass/Vol] 174 mg/dL Normal [facility] Comment on above: Performed By: #### A 1C #### [facility] [address] [place] [address] Dr. Anali Underwood HbA1c (Bld) [Mass fraction] 7.7 % Critically high 4.5-6.2 [facility] Comment on above: Performed By: #### A 1C #### [facility] [address] [place] [address] Dr. Anali Underwood CBC AUTO DIFFon 06-08-2022 BASO # 0.1 103/ul Normal 0.0-0.1 [facility] Comment on above: Performed By: #### C BC #### [facility] [address] [place] [address] Dr. Anali Underwood Basophils/100 WBC (Bld) 1.0 % Normal 0.2-2.0 [facility] Comment on above: Performed By: #### C BC #### [facility] [address] [place] [address] Dr. Anali Underwood EO # 0.1 103/ul Normal 0.0-0.7 [facility] Comment on above: Performed By: #### C BC #### [facility] [address] [place] [address] Dr. Anali Underwood Eosinophils/100 WBC (Bld) 1.1 % Normal 0.9-7.0 [facility] Comment on above: Performed By: #### C BC #### [facility] [address] [place] [address] Dr. Anali Underwood Erythrocyte distribution width (RBC) [Ratio] 19.8 % Critically high 11.0-15.0 [facility] Comment on above: Performed By: #### C BC #### [facility] [address] [place] [address] Dr. Anali Underwood Hematocrit (Bld) [Volume fraction] 36.4 % Normal 36.0-48.0 [facility] Comment on above: Performed By: #### C BC #### [facility] [address] [place] [address] Dr. Anali Underwood Hemoglobin (Bld) [Mass/Vol] 10.7 g/dL Critically low 12.0-16.0 [facility] Comment on above: Performed By: #### C BC #### [facility] [address] [place] [address] Dr. Anali Underwood IG # 0.02 10e3/ul Normal 0.00-0.03 [facility] Comment on above: Performed By: #### C BC #### [facility] [address] [place] [address] Dr. Anali Underwood IG % 0.3 % Normal 0.0-0.5 [facility] Comment on above: Performed By: #### C BC #### [facility] [address] [place] [address] Dr. Anali Underwood LYMPH # 2.3 103/ul Normal 1.2-3.8 [facility] Comment on above: Performed By: #### C BC #### [facility] [address] [place] [address] Dr. Anali Underwood Lymphocytes/100 WBC (Bld) 31.7 % Normal 20.5-60.0 [facility] Comment on above: Performed By: #### C BC #### [facility] [address] [place] [address] Dr. Anali Underwood MANUAL DIFF REQ NO Normal [facility] Comment on above: Performed By: #### C BC #### [facility] [address] [place] [address] Dr. Anali Underwood MCH (RBC) [Entitic mass] 22.7 pg Critically low 26.7-34.0 [facility] Comment on above: Performed By: #### C BC #### [facility] [address] [place] [address] Dr. Anali Underwood MCHC (RBC) [Mass/Vol] 29.4 g/dL Critically low 29.9-35.2 [facility] Comment on above: Performed By: #### C BC #### [facility] [address] [place] [address] Dr. Anali Underwood MCV (RBC) [Entitic vol] 77.3 fL Critically low 81.0-99.0 [facility] Comment on above: Performed By: #### C BC #### [facility] [address] [place] [address] Dr. Anali Underwood MONO # 0.6 103/ul Normal 0.3-0.8 [facility] Comment on above: Performed By: #### C BC #### [facility] [address] [place] [address] Dr. Anali Underwood Monocytes/100 WBC (Bld) 8.1 % Normal 1.7-12.0 [facility] Comment on above: Performed By: #### C BC #### [facility] [address] [place] [address] Dr. Anali Underwood NEUT # 4.1 103/ul Normal 1.4-6.5 [facility] Comment on above: Performed By: #### C BC #### [facility] [address] [place] [address] Dr. Anali Underwood Neutrophils/100 WBC (Bld) 57.8 % Normal 43.0-75.0 [facility] Comment on above: Performed By: #### C BC #### [facility] [address] [place] [address] Dr. Anali Underwood Platelet mean volume (Bld) [Entitic vol] 11.6 fL Normal 9.5-13.5 [facility] Comment on above: Performed By: #### C BC #### [facility] [address] [place] [address] Dr. Anali Underwood PLT 248 103/ul Normal 150-450 [facility] Comment on above: Performed By: #### C BC #### [facility] [address] [place] [address] Dr. Anali Underwood RBC 4.71 106/ul Normal 4.20-5.40 [facility] Comment on above: Performed By: #### C BC #### [facility] [address] [place] [address] Dr. Anali Underwood WBC 7.2 103/ul Normal 4.0-11.0 [facility] Comment on above: Performed By: #### C BC #### [facility] [address] [place] [address] Dr. Anali Underwood GLYCOHEMOGLOBIN A1Con 2021 ADA RECOMMENDATION SEE BELOW Normal [facility] Comment on above: Result Comment: ADA RECOMMENDED LIMIT 4.0 - 6.0 ADA THERAPEUTIC TARGET < 7.0 ACTION SUGGESTED > 7.0 Performed By: #### A 1C #### [facility] [address] [place] [address] Dr. Anali Underwood Glucose [Mass/Vol] 171 mg/dL Normal [facility] Comment on above: Performed By: #### A 1C #### [facility] [address] [place] [address] Dr. Anali Underwood HbA1c (Bld) [Mass fraction] 7.6 % Critically high 4.5-6.2 [facility] Comment on above: Performed By: #### A 1C #### [facility] [address] [place] [address] Dr. Anali Underwood LIPID PROFILEon 06-08-2022 CHOL-HDL RATIO NORM SEE BELOW Normal [facility] Comment on above: Result Comment: 3.3 - 4.4 LOW RISK 4.4 - 7.1 AVERAGE RISK 7.1 - 11.0 MODERATE RISK >11.0 HIGH RISK Performed By: #### L IPID, LIVER, BMP, TSH #### [facility] [address] [place] [address] Dr. Anali Underwood Cholesterol [Mass/Vol] 148 mg/dL Normal <=200 [facility] Comment on above: Performed By: #### L IPID, LIVER, BMP, TSH #### [facility] [address] [place] [address] [address] Anali Underwood Cholesterol in HDL [Mass/Vol] 58 mg/dL Normal 40-60 [facility] Comment on above: Performed By: #### L IPID, LIVER, BMP, TSH #### [facility] [address] [place] [address] [address] Anali Underwood Cholesterol in LDL [Mass/Vol] 66.4 mg/dL Normal [facility] Comment on above: Performed By: #### L IPID, LIVER, BMP, TSH #### [facility] [address] [place] [address] [address] Anali Underwood Cholesterol.total/ Cholesterol in HDL [Mass ratio] 2.6 {ratio} Normal [facility] Comment on above: Performed By: #### L IPID, LIVER, BMP, TSH #### [facility] [address] [place] [address] [address] Anali Underwood HDL NORMAL > or = 60 mg/dl - LO W CARDIOVASCULAR RISK <40 mg/dl - HIGH CARDIOVASCULAR RISK Normal [facility] Comment on above: Performed By: #### L IPID, LIVER, BMP, TSH #### [facility] [address] [place] [address] [address] Anali Underwood LDL CALC NORMAL SEE BELOW Normal [facility] Comment on above: Result Comment: <100 mg/dl OPTIMAL 100 - 129 mg/dl NEAR OR ABOVE OPTIMAL 130 - 159 mg/dl BORDERLINE HIGH 160 - 189 mg/dl HIGH >190 mg/dl VERY HIGH Performed By: #### L IPID, LIVER, BMP, TSH #### [facility] [address] [place] [address] [address] Anali Underwood Triglyceride [Mass/Vol] 118 mg/dL Normal <=150 [facility] Comment on above: Performed By: #### L IPID, LIVER, BMP, TSH #### [facility] [address] [place] [address] [address] Anali Underwood VLDL CALC 23.6 mg/dL Normal [facility] Comment on above: Performed By: #### L IPID, LIVER, BMP, TSH #### [facility] [address] [place] [address] Dr. Anali Underwood LIVER PROFILEon 06-08-2022 Albumin [Mass/Vol] 4.2 g/dL Normal 3.4-5.0 [facility] Comment on above: Performed By: #### L IPID, LIVER, BMP, TSH #### [facility] [address] [place] [address] Dr. Anali Underwood Albumin/Globulin [Mass ratio] 1.0 {ratio} Normal [facility] Comment on above: Performed By: #### L IPID, LIVER, BMP, TSH #### [facility] [address] [place] [address] Dr. Anali Underwood ALP [Catalytic activity/Vol] 93 U/L Normal 46-116 [facility] Comment on above: Performed By: #### L IPID, LIVER, BMP, TSH #### [facility] [address] [place] [address] Dr. Anali Underwood ALT [Catalytic activity/Vol] 59 U/L Normal 14-59 [facility] Comment on above: Performed By: #### L IPID, LIVER, BMP, TSH #### [facility] [address] [place] [address] Dr. Anali Underwood AST [Catalytic activity/Vol] 99 U/L Critically high 15-37 [facility] Comment on above: Performed By: #### L IPID, LIVER, BMP, TSH #### [facility] [address] [place] [address] Dr. Anali Underwood BILI, CONJUGATED 0.0 mg/dL Normal 0.0-0.2 [facility] Comment on above: Performed By: #### L IPID, LIVER, BMP, TSH #### [facility] [address] [place] [address] Dr. Anali Underwood Bilirubin [Mass/Vol] 0.4 mg/dL Normal 0.2-1.0 [facility] Comment on above: Performed By: #### L IPID, LIVER, BMP, TSH #### [facility] [address] [place] [address] [address] Anali Underwood Globulin (S) [Mass/Vol] 4.2 g/dL Normal [facility] Comment on above: Performed By: #### L IPID, LIVER, BMP, TSH #### [facility] [address] [place] [address] Dr. Anali Underwood Protein [Mass/Vol] 8.4 g/dL Critically high 6.4-8.2 [facility] Comment on above: Performed By: #### L IPID, LIVER, BMP, TSH #### [facility] [address] [place] [address] [address] Anali Underwood MICROALBUMIN, RAND URon 05-28 mALB 0.9 mg/L Normal <=30.0 [facility] Comment on above: Performed By: #### M ALBR #### [facility] [address] [place] [address] Dr. Anali Underwood PROF CHEM 8 (BAS METB)on Anion gap [Moles/Vol] 15.2 mmol/L Normal [facility] Comment on above: Performed By: #### L IPID, LIVER, BMP, TSH #### [facility] [address] [place] [address] Dr. Anali Underwood Calcium [Mass/Vol] 9.6 mg/dL Normal 8.5-10.1 [facility] Comment on above: Performed By: #### L IPID, LIVER, BMP, TSH #### [facility] [address] [place] [address] [address] Anali Underwood Chloride [Moles/Vol] 101 mmol/L Normal 98-107 [facility] Comment on above: Performed By: #### L IPID, LIVER, BMP, TSH #### [facility] [address] [place] [address] Dr. Anali Underwood CO2 [Moles/Vol] 29.9 mmol/L Normal 21.0-32.0 [facility] Comment on above: Performed By: #### L IPID, LIVER, BMP, TSH #### [facility] [address] [place] [address] [address] Anali Underwood Creatinine [Mass/Vol] 0.67 mg/dL Normal 0.55-1.02 [facility] Comment on above: Performed By: #### L IPID, LIVER, BMP, TSH #### [facility] [address] [place] [address] [address] Anali Underwood EGFR-AF MAURITIAN >60 Normal >=60 [facility] Comment on above: Performed By: #### L IPID, LIVER, BMP, TSH #### [facility] [address] [place] [address] [address] Anali Underwood EGFR-NON AF MAURITIAN >60 Normal >=60 [facility] Comment on above: Performed By: #### L IPID, LIVER, BMP, TSH #### [facility] [address] [place] [address] [address] Anali Underwood Glucose [Mass/Vol] 69 mg/dL Critically low 74-106 Th [facility] Comment on above: Performed By: #### L IPID, LIVER, BMP, TSH #### [facility] [address] [place] [address] [address] Anali Underwood Potassium [Moles/Vol] 5.1 mmol/L Normal 3.5-5.1 [facility] Comment on above: Performed By: #### L IPID, LIVER, BMP, TSH #### [facility] [address] [place] [address] [address] Anali Underwood Sodium [Moles/Vol] 141 mmol/L Normal 136-145 [facility] Comment on above: Performed By: #### L IPID, LIVER, BMP, TSH #### [facility] [address] [place] [address] [address] Anali Underwood Urea nitrogen [Mass/Vol] 14.0 mg/dL Normal 7.0-18.0 [facility] Comment on above: Performed By: #### L IPID, LIVER, BMP, TSH #### [facility] [address] [place] [address] Dr. Anali Underwood Urea nitrogen/Creatinin e [Mass ratio] 20.9 mg/mg Normal [facility] Comment on above: Performed By: #### L IPID, LIVER, BMP, TSH #### [facility] [address] [place], [place] [address] Dr. Anali Underwood TSHon 06-08-2022 TSH 1.511 uIU/mL Normal 0.358-3.740 [facility] Comment on above: Performed By: #### L IPID, LIVER, BMP, TSH #### [facility] [address] [place] [id number] Anali Underwood CNOVon 08-15-2017 CNOV Office Visit (PAINLN) ----GRETALUDMILA J ([id number]) 1965 FDate Time Provider Department08/15/17 1:30 PM ELIZABETH JOHNSON During your visit today, we recorded the following information about you: Blood pressure Weight Height 122/78 103 kg 1.575 mGkiki Johnson DO 08/24/2017 5:07 PM Signed[facility] Initial EvaluationSept2016 - 1:37 PMThis appointment was requested by Sary Carreno (MANDY), for my medical opinionregarding? the evaluation and management of the patient's Ludmila Mcnealproblems, and my final recommendations will be communicated to the requestinghealth care provider by way of the shared medical record for internal providersor letter via the [employer] for external providers.SUBJECTIVE:Ludmila Mcneal a 52 year old [facility] accompanied by self only, was [...] (FLONASE) 50 mcg/actuation nasal spray Use 1 [place] in each nostrilonce daily.No current facility-administered medications [...] (see below) 1. Physical therapy: Yes: Where: [place] , Date Started: 04/2017, DateEnded: 06/2017. 2. Home exercise program after PT: No 3. Occupational therapy: No 4. A physician supervised home exercise program (HEP): No 5. Flying Ii Instructor: NoPassive conservative therapy lasting 6 weeks in the last six months (see below) 1. Medical devises: No 2. Acupuncture: No 3. Tens unit: No 4. Prescription pain medication: Yes 5. NSAIDS: NoDo you feel safe at home? YesRisk assessment at risk due to fall:[facility] 2016 Time: 1:48 PMThe subjective information, including chief complaint, past medical history andreview of systems, was explored in detail with the patient and edited as neededand is complete.Elizabeth Johnson, DOSept2016Physical Examination:BP 122/78 Ht 5' 2ANDquot; (1.58m) Wt [...] on 3 occassions- August 15, 2017 by ROHITH Babb; ASSESSMENT: Paula Christianson, MSN, INBOUND CUSTOMER SERVICE AGENT was present during the interviewand physical exam.Ludmila Mcneal is a 52 year old female with [...] medications (Relafen, Percocet, Effexor 75 mg QD, Sezcglnnncqmw199 mg QD, Lamictal 100 mg QD, Lyrica 300 BID, and Xanax 1 mg TID PRN). FailedTENs. PT a year ago. Reports that Percocet is the only medication that hasprovided some relief. Hx of SIJ injection that helped and back injections(epidurals that did not help), PT () that did not help.Reports seeing a pain management physician (Dr. Pugh) as she was informedthat there was nothing more than could be done for her.Pertinent medical history of Bipolar Disorder. Reports history ofintestinal/hernia surgery Fall2015.Reports that she failed a urine toxicology test [...] above and verbalized understanding.Thank you Sary Carreno ([facility]) for allowing me to participate in Ludmila Larson's care.Paula Christianson, EKATERINA-CSeptember 2016Referring Provider: SARY CARRENO [[id number]]Allergies As of Date: 08/15/2017 Noted Allergy ReactionLAMISIL (TERBINAFINE HCL) 02/06/2015 8 - GI UpsetNAPROXEN 02/06/2015 8 - GI UpsetNEURONTIN (GABAPENTIN) 02/06/2015 9 - ItchingPENICILLIN V POTASSIUM 02/06/2015 4 - HivesDate Reviewed: 08/15/2017Reviewed by: Paula Quesada ([facility]) Christianson - Fully AssessedReason for Visit: Consult [502] Cmt: new patientPrimary Visit Diagnosis:Sacroiliitis (HCC) [M46.1] Other Visit Diagnoses:Lumbosacral spondylosis without myelopathy [M47.817] Bipolar affective disorder, current episode manic, current episode severity unspecified (HCC) [F31.9] Chronic, continuous use of opioids [F11.90]Order(s):CONSULT TO CHRONIC PAIN REHABILITATION (NON-PAIN ANESTHESIA) [6048597] Order #: [id number]: 1Prescriptions as of 08/15/2017 Sig: ALPRAZOLAM 1 [...] da* FLUTICASONE 50 MCG/ACTUATION * Use 1 [place] in each nostril o*Problem List As Of [...] on file.Follow-up and Disposition History RecordedEncounter Number: [id number] Status:Closed by ELIZABETH JOHNSON DO on 08/24/17 Normal [facility] PROGRESSon 08-15-2017 PROGRESS HNO ID: [id number] thor: Elizabeth Jacksonervice: (none)Author Type: PhysicianType: Progress NotesFiled: 08/24/2017 5:07 PMNote Text:[facility] Initial EvaluationSept2016 - 1:37 PMThis appointment was requested by Sary Carreno (MANDY), for my medicalopinion regarding? the evaluation and management of the patient's Ludmila Larson problems, and my final recommendations will be communicated tothe requesting health care provider by way of the shared medical recordfor internal providers or letter via the [employer] forexternal providers.SUBJECTIVE:Ludmila Mcneal a 52 year old [facility], accompanied by self only, was [...] lifting, getting up from sittingand walking.Mitigated by medications(percocet).Curren t treatments and response:PercocetInjections SI [...] (FLONASE) 50 mcg/actuation nasal spray Use 1 [place] in eachnostril once daily.No current facility-administered medications [...] months ([place]) 1. Physical therapy: Yes: Where: [place] , Date Started: 04/2017,Date Ended: 06/2017. 2. Home exercise program after PT: No 3. Occupational therapy: No 4. A physician supervised home exercise program (HEP): No 5. Flying Ii Instructor: NoPassive conservative therapy lasting 6 weeks in the last six months ([place]) 1. Medical devises: No 2. Acupuncture: No 3. Tens unit: No 4. Prescription pain medication: Yes 5. NSAIDS: NoDo you feel safe at home? YesRisk assessment at risk due to fall:Barry Bean2016 Time: 1:48 PMThe subjective information, including chief complaint, past medicalhistory and review of systems, was explored in detail with the patient andedited as needed and is complete.Elizabeth Johnson, [facility]2016Physical Examination:BP 122/78 Ht 5' 2 (1.58m) Wt [...] occassions- August 15, 2017 by Elizabeth Johnson, DOHPI AND ASSESSMENT: Paula Christianson, MSN, INBOUND CUSTOMER SERVICE AGENT was present during the interviewand physical exam.Ludmila Mcneal is a 52 year old female with [...] injections (epidurals that did not help), PT ()that did not help.Reports seeing a pain management physician (Dr. Pugh) as she wasinformed that there was nothing more than could be done for her.Pertinent medical history of Bipolar Disorder. Reports history ofintestinal/hernia surgery Fall, 2015.Reports that she failed a urine toxicology [...] in agreement with the above and verbalizedunderstanding.Than k abebe Carreno (INBOUND CUSTOMER SERVICE AGENT) for allowing me to participate in Ludmila Larson's care.Paula Christianson, EKATERINA-CSeptember 2016 Normal [facility] Encounters Encounter Date Encounter Type Care Provider Facility Start: 09-03-2024 End: 09-03-2024 ambulatory LUIS CUELLAR Not Available Start: 08-17-2024 ambulatory LUIS CUELLAR [facility] Start: 06-19-2024 End: 06-19-2024 ambulatory LUIS CUELLAR Not Available Start: 05-28-2024 End: 05-28-2024 ambulatory LUIS CUELLAR Not Available Start: 05-21-2024 End: 06-28-[address] [facility] Start: 05-17-2024 End: 05-18-2024 Emergency department patient visit SHAUNA HUYNH [facility] Start: 05-08-2024 End: 05-08-2024 ambulatory LUIS CUELLAR Not Available Start: 03-22-2024 End: 03-22-2024 ambulatory SHAIKH RAMIRO Not Available Start: 02-23-2024 End: 02-23-2024 ambulatory LUIS CUELLAR Not Available Start: 01-06-2024 End: 01-06-2024 Emergency department patient visit LUIS CUELLAR [facility] Start: 01-05-2024 Refill Luis Blackburn Work Phone: [facility] Comment on above: Type 2 diabetes crystal itus with polyneuropathy (CMS/HCC) (Primary Dx); Gastro-esophageal reflux disease without esophagitis; Esophageal reflux Start: 12-28-2022 End: 12-29-[address] LUIS CUELLAR Facility: Start: 09-14-2022 End: 09-15-[address] LUIS CUELLAR Facility: Start: 06-08-2022 End: 06-09-[address] LUIS CUELLAR Facility: Start: 06-09-2021 End: 06-14-2021 ambulatory JOHNNY BELTRAN Facility:[facility] Start: 08-15-2017 End: 08-15-2017 Ambulatory ELIZABETH JOHNSON [facility] Plan of Treatment Date Care Activity Detail Author Start: 10-19-2026 Screening for malign ant neoplasm of colon [facility] Start: 07-29-2023 Influenza vaccination Influenza Vacc ine (#1) [facility] Start: 2005 Screening for malign ant neoplasm of breast Mammogram [facility] Start: 1995 Screening for malign ant neoplasm of cervix [facility] Start: 1986 Screening for malign ant [...] Payer Category Payer Unknown BCBS BCBS xxxxxx [id number] 2018-Present [phone] [address] [place] [address] [id number] 2003 Medicaid [id number] 1965 Unknown [id number] 2.16.840.1.701608.3.579.2.6 47 1965 Unknown [id number] 2.16.840.1.342428.3.579.2.5 93 1965 Unknown [id number] 2.16.840.1.135049.3.579.2.5 93 1965 Unknown [id number] 2.16.840.1.414647.3.579.2.5 93 1965 Unknown [id number] 2.16.840.1.345546.3.579.2.1 286 1965 Unknown [id number] 2.16.840.1.995877.3.579.2.1 286 1965 Unknown [id number] 2.16.840.1.456275.3.579.2.1 286 1965 Unknown [id number] 2.16.840.1.587468.3.579.2.1 286 1965 Unknown [id number] 2.16.840.1.985985.3.579.2.1 286 1965 Unknown [id number] 2.16.840.1.721012.3.579.2.1 286 1965 Unknown [id number] 2.16.840.1.244271.3.579.2.1 286 1965 Unknown [id number] 2.16.840.1.939137.3.579.2.1 259 1965 Unknown [id number] 2.16.840.1.177080.3.579.2.1 259 1965 Unknown [id number] 2.16.840.1.128633.3.579.2.1 259 1965 Unknown [id number] 2.16.840.1.742010.3.579.2.1 259 1965 Unknown [id number] 2.16.840.1.372251.3.579.2.1 259 1965 Unknown [id number] 2.16.840.1.617317.3.579.2.1 259 1959 Medicare [id number] 1959 Unknown [id number] Private Health Insurance MEB [id number] Social History Date Type Detail Facility Tobacco smoking stat [facility] Tobacco smoking consumption unknown [facility] Start: 1965 Sex Assigned At Not on file [facility] Gender identity Not on file [facility] Clinical Note 05-17-2024 Note Date & Type Note Facility 05-17-2024 Note XR KNEE RT 3 VWS Procedure: Right knee radiographs performed Number of views:3 History:Injury and pain Comparison:06/08/2017 Findings: There is no fracture, dislocation, effusion, or destructive lesion. Postsurgical changes are seen involving the distal femur which are stable Impression: No acute findings. Finalized by Kati Curiel DO on 05/17/2024 4:[address] [facility] Evaluation note Note Date & Type Note Facility Evaluation note Diagnosis Type 2 diabetes mellitus with polyneuropathy (CMS/HCC)- Primary Type II or unspecified type diabetes mellitus with neurological manifestations, not stated as uncontrolled Gastro-esophageal reflux disease without esophagitis Esophageal reflux documented in this encounter [facility] Summary Purpose Family History No Family [...] section and content) DATE CREATED AUTHOR 05/24/2018 [facility] DATE CREATED AUTHOR AUTHOR'S ORGANIZ ATION 06/18/2022 [facility] DATE CREATED AUTHOR AUTHOR'S ORGANIZ ATION 03/30/2023 [facility] DATE CREATED AUTHOR AUTHOR'S ORGANIZ ATION 06/30/2024 [facility] DATE CREATED AUTHOR AUTHOR'S ORGANIZ ATION 08/19/2024 [facility] DATE CREATED AUTHOR AUTHOR'S ORGANIZ ATION 09/03/2024 [facility] EPIC Reason for Visit (unrecogniz ed section and content) Reason Comments Med Refill Care Teams (unrecognized sec tion and content) Lead Pl Sql Developer Relationship Specialty Start Date End Date Luis [...] BE BASED ON THE PRIMARY CLINICAL RECORDS. [employer] [facility]. provides no warranty or guarantee of the accuracy or completeness of information in this document.
[2024-09-04 10:21] LABS: Microalbumin Urine Random 1.4 mg/dL (<=30.0)
[2024-09-04 10:27] LABS: Basophils Absolute Auto 0.1 10^3/uL (0.0-0.1); Basophils Percent Auto 1.5 % (0.2-2.0); Eosinophils Absolute Auto 0.1 10^3/uL (0.0-0.7); Eosinophils Percent Auto 2.3 % (0.9-7.0); Hematocrit 37.1 % (36.0-48.0); Hemoglobin 11.1 g/dL (12.0-16.0); Immature Granulocytes Abs Auto 0.01 10^3/uL (0.00-0.03); Immature Granulocytes Pct Auto 0.2 % (0.0-0.5); Lymphocytes Absolute Auto 1.8 10^3/uL (1.2-3.8); Lymphocytes Percent Auto 33.4 % (20.5-60.0); Mean Corpuscular HGB Conc 29.9 g/dL (29.9-35.2); Mean Corpuscular Hemoglobin 24.6 pg (26.7-34.0); Mean Corpuscular Volume 82.3 fL (81.0-99.0); Mean Platelet Volume 11.1 fL (9.5-13.5); Monocytes Absolute Auto 0.4 10^3/uL (0.3-0.8); Monocytes Percent Auto 8.2 % (1.7-12.0); Neutrophils Absolute Auto 2.9 10^3/uL (1.4-6.5); Neutrophils Percent Auto 54.4 % (43.0-75.0); Platelet Count 207 10^3/uL (150-450); Red Blood Count 4.51 10^6/uL (4.20-5.40); Red Cell Distribution Width 17.3 % (11.0-15.0); White Blood Count 5.3 10^3/uL (4.0-11.0)
[2024-09-04 11:08] LABS: Estimated Average Glucose 163 mg/dL; Glycohemoglobin A1C 7.3 % (4.5-6.2)
[2024-09-04 11:25] LABS: Alanine Aminotransferase 49 U/L (14-59); Albumin Globulin Ratio 1.2; Albumin Level 4.1 g/dL (3.4-5.0); Alkaline Phosphatase 97 U/L (46-116); Anion Gap 11.5; Aspartate Amino Transferase 73 U/L (15-37); BUN Creatinine Ratio 13.6; Bilirubin Direct 0.1 mg/dL (0.0-0.2); Bilirubin Total 0.4 mg/dL (0.2-1.0); Calcium 10.3 mg/dL (8.5-10.1); Carbon Dioxide 32.2 mmol/L (21.0-32.0); Chloride 101 mmol/L (98-107); Cholesterol 134 mg/dL (<=200); Estimated GFR (African America >60 (>=60 mL/min/1.73m^2); Estimated GFR (Non-African Ame >60 (>=60 mL/min/1.73m^2); Globulin 3.5 g/dL; Glucose 166 mg/dL (74-106); HDL Cholesterol 67 mg/dL (40-60); Potassium 3.7 mmol/L (3.5-5.1); Sodium 141 mmol/L (136-145); Thyroid Stimulating Hormone 1.591 uIU/mL (0.358-3.740); Total Protein 7.6 g/dL (6.4-8.2); Triglycerides 125 mg/dL (<=150)
== END 2024-09-04 09:23 | disposition home or self-care (01) ==
LOC: LAB 09:23
PROVIDERS: PCP Family Medicine; Visit Provider Family Medicine
DX: E11.65 Type 2 diabetes mellitus with hyperglycemia (principal); I10 Essential (primary) hypertension; Z79.899 Other long term (current) drug therapy; E66.01 Morbid (severe) obesity due to excess calories
CPT/HCPCS: 36415; 80048; 80061; 80076; 82043; 83036; 84443; 85025